=== PATIENT | male | born 1930 | race Hispanic/Latino ===

== ENCOUNTER 2017-01-15 08:10 | Outpatient (CLI) | payer MEDICARE ==
--- NOTE | 2017-01-15 09:54 | Fluoroscopy Report ---
Barium swallow: History: Dysphagia. Findings: Transit of barium through the distal esophagus is delayed due to tertiary contractions. There is small sliding hiatal hernia noted with marked gastroesophageal reflux extending to the cervical esophagus. No evidence of ulcer. No extravasation of contrast. The ingested tablet was stuck initially in the vallecula and eventually progressed into the thoracic esophagus and stomach following multiple attempts with ingested water and thin barium. There is mild stricture noted just distal to hypopharynx. Impression: Small sliding hiatal hernia with marked gastroesophageal reflux extending to the cervical esophagus. No definite evidence of ulceration. Mild stricture just distal to hypopharynx.
== END 2017-01-15 08:11 | disposition home or self-care (01) ==
LOC: FLUORO 08:10
PROVIDERS: ATTEND Internal Medicine Gastroenterology
DX: R13.14 Dysphagia, pharyngoesophageal phase (principal); K22.2 Esophageal obstruction; K44.9 Diaphragmatic hernia without obstruction or gangrene
CPT/HCPCS: 74220

== ENCOUNTER 2018-10-25 10:51 | Emergency (ER) | payer MEDICARE ==
[2018-10-25 12:22] VITALS: BP 163/53
[2018-10-25] MEDS ORDERED: NACL 0.9% 1000 ML IV ONE (12:50)
--- NOTE | 2018-10-25 13:01 | Emergency Department Report ---
ED Shortness of Breath HPI - General Chief Complaint: Medical Clearance Stated Complaint: COUGH Time Seen by Provider: 10/25/18 12:23 Source: EMS Mode of arrival: Stretcher Limitations: Physical Limitation - History of Present Illness Initial Comments: Mr. Garza is an 88 yo male with history of diabetes hypertension coronary artery disease status post CABG who presents with choking episode last night. His noticed that he choked on water. She heard gurgling. He coughed the majority of the night. He's had poor appetite over the last several weeks. He's had chills. He felt hot to touch. Patient states that he feels okay. Patient does not have any complaints. He denies any pain. Patient is bedbound. He wears diapers. at the bedside desires ordered for inpatient rehabilitation. PCP is Dr. Yousif Shaikh. Complaint: shortness of breath -: Sudden Severity: moderate Consistency: constant, now resolved Improves With: bronchodilators, upright position Context: choking/aspiration - Related Data Previous Rx's Medication Instructions Recorded Last Taken Type levoFLOXacin [Levaquin TAB] 500 mg PO QDAY 6 Days #6 tablet 10/25/18 Unknown Rx Allergies Allergy/AdvReac Type Severity Reaction Status Date / Time No Known Allergies Allergy Unverified 01/15/17 08:10 ED Review of Systems ROS: Stated complaint: COUGH Other details as noted in HPI Comment: All other systems reviewed and negative Constitutional: chills, malaise Respiratory: cough, shortness of breath ED Past Medical Hx - Past Medical History Previous Medical History?: Yes Hx Hypertension: Yes Hx Diabetes: Yes - Surgical History Past Surgical History?: Yes Hx Open Heart Surgery: Yes (Triple Bypass) - Social History Smoking Status: Former Smoker Substance Use Type: None - Medications Home Medications: Home Medications Medication Instructions Recorded Confirmed Last Taken Type levoFLOXacin [Levaquin TAB] 500 mg PO QDAY 6 Days #6 tablet 10/25/18 Unknown Rx ED Physical Exam - General Limitations: Physical Limitation General appearance: alert, in no apparent distress, other (elderly frail) - Head Head exam: Present: atraumatic, normocephalic - Eye Eye exam: Present: normal appearance - ENT ENT exam: Present: mucous membranes dry - Neck Neck exam: Present: normal inspection. Absent: tenderness, meningismus - Respiratory Respiratory exam: Present: decreased breath sounds. Absent: respiratory distress, wheezes, rales, rhonchi - Cardiovascular Cardiovascular Exam: Present: regular rate, normal rhythm. Absent: systolic murmur, diastolic murmur, rubs, gallop - GI/Abdominal GI/Abdominal exam: Present: soft, normal bowel sounds. Absent: distended, tenderness, guarding - Rectal Rectal exam: Present: deferred - Extremities Exam Extremities exam: Present: normal inspection - Back Exam Back exam: Present: normal inspection - Neurological Exam Neurological exam: Present: alert, oriented X3 - Psychiatric Psychiatric exam: Present: normal mood, flat affect - Skin Skin exam: Present: warm, dry, intact, normal color, other (warm to touch). Absent: rash ED Course Vital Signs 10/25/18 10/25/18 12:16 13:24 Temperature 100.1 F H Pulse Rate 71 Respiratory 16 Rate Blood Pressure 163/53 ED Medical Decision Making - Lab Data Result diagrams: 10/25/18 13:43 10/25/18 13:43 - Radiology Data Radiology results: report reviewed No infiltrate seen on chest x-ray - Medical Decision Making Mr. Garza presents with cough and low grade fever elevated WBC. History of choking episode. Will cover for possible bacterial pneumonia consideration of aspiration pneumonitis. Discharged home with prescription for Levaquin. First dose provided in the ED. Also provided IV hydration with history of poor by mouth intake over the last several weeks. Discharged home and should follow up with PCP Dr. Yousif Thayer. Critical care attestation.: If time is entered above; I have spent that time in minutes in the direct care of this critically ill patient, excluding procedure time. ED Disposition Clinical Impression: Community acquired pneumonia Disposition: - TO HOME OR SELFCARE Is pt being admited?: No Does the pt Need Aspirin: No Condition: Stable Instructions: Bacterial Pneumonia (ED) Prescriptions: levoFLOXacin [Levaquin TAB] 500 mg PO QDAY 6 Days #6 tablet Referrals: YOUSIF SHAIKH MD [Staff Physician] - [facility]
[2018-10-25 13:31] LABS: Bilirubin,Urine NEG (Negative); Blood,Urine MOD (Negative); Color,Urine Yellow (Yellow); Mucus,Urine FEW /HPF; Urobilinogen,Urine < 2.0 mg/dL (<2.0)
--- NOTE | 2018-10-25 13:47 | XRay Report ---
AP CHEST: HISTORY: Stroke, gurgling Previous CABG changes are identified. Normal heart size and pulmonary vascularity. There are chronic interstitial changes throughout both lungs. Trace right pleural effusion. Left pleural calcifications are identified suggesting previous pleural insult. IMPRESSION: Chronic findings as described above. No acute process identified.
[2018-10-25 14:16] LABS: Hematocrit 28.3 % (35.5-45.6); Hemoglobin 9.1 gm/dl (11.8-15.2); Mean Corpuscular HGB Conc 32 % (32-34); Mean Corpuscular Volume 81 fl (84-94); Platelet Count 108 K/mm3 (140-440); Red Blood Count 3.51 M/mm3 (3.65-5.03); Red Cell Distribution Width 17.2 % (13.2-15.2)
[2018-10-25 14:35] LABS: Alanine Aminotransferase 14 units/L (7-56); BUN/Creatinine Ratio 18; Blood Urea Nitrogen 20 mg/dL (9-20); Calcium 8.8 mg/dL (8.4-10.2); Hemolysis Index 7
[2018-10-25] MEDS ORDERED: LEVAQUIN PO ONE (15:30)
[2018-10-25 15:31] LABS: Total Cells Counted 100
[2018-10-25 15:32] LABS: Anisocytosis 1+; Basophils % (Manual) 0 % (0.0-1.8); Eosinophils % (Manual) 0 % (0.0-4.3); Platelet Estimate Consistent w Auto; Target Cells Few
[2018-10-25 15:33] LABS: Tear Drop Cells Rare
== END 2018-10-25 16:33 | disposition home or self-care (01) ==
LOC: EDBD → ED 10:51
DX: J18.8 Other pneumonia, unspecified organism (principal); I10 Essential (primary) hypertension; E11.9 Type 2 diabetes mellitus without complications; Z87.891 Personal history of nicotine dependence
CPT/HCPCS: 36415; 71045; 80053; 81001; 85007; 85025; 87040; 99284; J7030

== ENCOUNTER 2019-02-18 08:06 | Inpatient (IN) | payer MEDICARE ==
[2019-02-18] MEDS ORDERED: DUONEB *Not for PRN Use IH ONE (08:20)
--- NOTE | 2019-02-18 10:28 | XRay Report ---
PROCEDURE: XR CHEST 1V AP TECHNIQUE: Chest radiograph single view. HISTORY: IMAN COMPARISONS: None . FINDINGS: Single frontal view of the chest was acquired. There is cardiomegaly. There are bilateral p leural effusions versus pleural thickening. There is bilateral apical pleural-parenchymal scarring. T here is some increased density in the right pulmonary apex which could represent pulmonary edema or p neumonia. IMPRESSION: Possible right upper lobe infiltrate This document is electronically signed by Charli Heath MD., February 18 2019 10:26:17 AM ET
[2019-02-18 11:33] LABS: Creatine Kinase MB 2.9 ng/mL (0.0-4.0)
[2019-02-18 11:35] LABS: Alanine Aminotransferase 47 units/L (7-56); Albumin 2.7 g/dL (3.9-5); BUN/Creatinine Ratio 19; Blood Urea Nitrogen 26 mg/dL (9-20); Calcium 7.8 mg/dL (8.4-10.2); Hemolysis Index 4
[2019-02-18 11:38] LABS: Bilirubin,Direct < 0.2 mg/dL (0-0.2)
--- NOTE | 2019-02-18 11:39 | Emergency Department Report ---
ED General Adult HPI - General Chief complaint: Dyspnea/Respdistress Stated complaint: IMAN Time Seen by Provider: 02/18/19 09:27 Source: EMS Mode of arrival: Stretcher Limitations: Altered Mental Status, Physical Limitation - History of Present Illness Initial comments: This is an 88-year-old man who is homeless health care provider alerted the family of his pulse oximetry of 76%. His breathing was somewhat labored. However, he was not specifically complaining. According to the the patient had a CABG perhaps 15 years ago and has "not had any problem since. He does not have a history of COPD or CHF. He has not recently been hospitalized. He has no known history of pneumonia. He is hypertensive and diabetic. He does not use home nebulized therapy or oxygen. The family did communicate to the nursing staff desire for the patient not to undergo CPR. They state that they have considered hospice care in the past but the patient is not assigned to hospice now. They do not have a specific and of life plan well defined. Patient does not have a history of a known terminal illness. -: Gradual, week(s) - Related Data Previous Rx's Medication Instructions Recorded Last Taken Type levoFLOXacin [Levaquin TAB] 500 mg PO QDAY 6 Days #6 tablet 10/25/18 Unknown Rx Allergies Allergy/AdvReac Type Severity Reaction Status Date / Time No Known Allergies Allergy Unverified 01/15/17 08:10 ED Review of Systems ROS: Stated complaint: IMAN Other details as noted in HPI Comment: All other systems reviewed and negative Constitutional: weakness Respiratory: shortness of breath Gastrointestinal: other (anorexia) ED Past Medical Hx - Past Medical History Hx Hypertension: Yes Hx Diabetes: Yes - Surgical History Hx Open Heart Surgery: Yes (Triple Bypass) - Social History Smoking Status: Current Every Day Smoker Substance Use Type: None - Medications Home Medications: Home Medications Medication Instructions Recorded Confirmed Last Taken Type levoFLOXacin [Levaquin TAB] 500 mg PO QDAY 6 Days #6 tablet 10/25/18 Unknown Rx ED Physical Exam - General Limitations: Altered Mental Status, Physical Limitation General appearance: alert, in no apparent distress, lethargic - Head Head exam: Present: atraumatic, normocephalic - Eye Eye exam: Present: normal appearance - ENT ENT exam: Present: mucous membranes moist - Neck Neck exam: Present: normal inspection. Absent: tenderness, meningismus - Respiratory Respiratory exam: Present: rhonchi. Absent: respiratory distress - Cardiovascular Cardiovascular Exam: Present: regular rate, normal rhythm. Absent: systolic murmur, diastolic murmur, rubs, gallop - GI/Abdominal GI/Abdominal exam: Present: soft, normal bowel sounds. Absent: distended, tenderness, guarding, rebound - Rectal Rectal exam: Present: deferred - Extremities Exam Extremities exam: Present: normal inspection - Back Exam Back exam: Present: normal inspection - Neurological Exam Neurological exam: Present: alert, oriented X3, CN II-XII intact. Absent: motor sensory deficit - Psychiatric Psychiatric exam: Present: normal mood, flat affect - Skin Skin exam: Present: warm, dry, intact, normal color. Absent: rash ED Course Vital Signs 02/18/19 02/18/19 02/18/19 08:20 08:30 08:31 Temperature Pulse Rate Pulse Rate [ 83 Anterior Left Throughout] Pulse Rate [ 83 Anterior Right Throughout] Respiratory 16 Rate Respiratory 24 Rate [Anterior Left Throughout ] Respiratory 24 Rate [Anterior Right Throughout] Blood Pressure 160/74 Blood Pressure [Left] O2 Sat by Pulse 100 100 Oximetry 02/18/19 02/18/19 02/18/19 08:32 08:46 08:49 Temperature 97.9 F Pulse Rate 77 Pulse Rate [ 93 H Anterior Left Throughout] Pulse Rate [ 22 L Anterior Right Throughout] Respiratory 16 Rate Respiratory 22 Rate [Anterior Left Throughout ] Respiratory 93 H Rate [Anterior Right Throughout] Blood Pressure Blood Pressure 144/80 [Left] O2 Sat by Pulse 92 100 Oximetry 02/18/19 02/18/19 02/18/19 09:00 09:16 09:30 Temperature Pulse Rate 86 83 78 Pulse Rate [ Anterior Left Throughout] Pulse Rate [ Anterior Right Throughout] Respiratory 16 13 15 Rate Respiratory Rate [Anterior Left Throughout ] Respiratory Rate [Anterior Right Throughout] Blood Pressure 144/68 148/68 144/68 Blood Pressure [Left] O2 Sat by Pulse 95 Oximetry 02/18/19 02/18/19 02/18/19 09:46 10:00 10:16 Temperature Pulse Rate 78 72 75 Pulse Rate [ Anterior Left Throughout] Pulse Rate [ Anterior Right Throughout] Respiratory 22 14 16 Rate Respiratory Rate [Anterior Left Throughout ] Respiratory Rate [Anterior Right Throughout] Blood Pressure 144/68 144/68 158/52 Blood Pressure [Left] O2 Sat by Pulse 100 100 Oximetry 02/18/19 02/18/19 02/18/19 10:30 10:46 11:00 Temperature Pulse Rate 76 77 74 Pulse Rate [ Anterior Left Throughout] Pulse Rate [ Anterior Right Throughout] Respiratory 24 15 20 Rate Respiratory Rate [Anterior Left Throughout ] Respiratory Rate [Anterior Right Throughout] Blood Pressure 158/52 158/52 158/52 Blood Pressure [Left] O2 Sat by Pulse 99 100 98 Oximetry 02/18/19 02/18/19 11:16 11:30 Temperature Pulse Rate 71 70 Pulse Rate [ Anterior Left Throughout] Pulse Rate [ Anterior Right Throughout] Respiratory 22 17 Rate Respiratory Rate [Anterior Left Throughout ] Respiratory Rate [Anterior Right Throughout] Blood Pressure 136/52 136/52 Blood Pressure [Left] O2 Sat by Pulse 99 99 Oximetry - Reevaluation(s) Reevaluation #1: Discussed further with the family their wishes for care at this point. They aren't agreement with noninvasive positive pressure ventilation. Therefore the patient was placed on BiPAP. This progress will be monitored. His chest x-ray does look like there is extensive disease. I would certainly consider the possibility of pneumonia, CHF and chronic lung and even underlying neoplasm. 02/18/19 11:39 02/18/19 11:41 Reevaluation #2: [facility] to the nurses to have the family sign the DO NOT RESUSCITATE at their request. They do want BiPAP. They do want medical management. They do not want intubation or CPR. 02/18/19 11:53 ED Medical Decision Making - Lab Data Result diagrams: 02/18/19 10:44 02/18/19 10:44 Laboratory Results - last 24 hr 02/18/19 02/18/19 02/18/19 10:22 10:44 10:44 POC ABG pH 7.269 L POC ABG pCO2 68.7 H POC ABG pO2 218 H POC ABG HCO3 31.5 POC ABG Total CO2 34 POC ABG O2 Sat 100 POC ABG Base Excess 5 FiO2 32 Sodium Potassium Chloride Carbon Dioxide Anion Gap BUN Creatinine Estimated GFR BUN/Creatinine Ratio Glucose Lactic Acid Calcium Magnesium Total Bilirubin Direct Bilirubin Indirect Bilirubin AST ALT Alkaline Phosphatase CK-MB (CK-2) 2.9 Troponin T NT-Pro-B Natriuret Pep Total Protein Albumin Albumin/Globulin Ratio Plasma/Serum Alcohol < 0.01 02/18/19 02/18/19 02/18/19 10:44 10:44 10:44 POC ABG pH POC ABG pCO2 POC ABG pO2 POC ABG HCO3 POC ABG Total CO2 POC ABG O2 Sat POC ABG Base Excess FiO2 Sodium 140 Potassium 4.9 Chloride 100.5 Carbon Dioxide 29 Anion Gap 15 BUN 26 H Creatinine 1.4 Estimated GFR 48 BUN/Creatinine Ratio 19 Glucose 121 H Lactic Acid 1.40 Calcium 7.8 L Magnesium 2.20 Total Bilirubin 0.40 Direct Bilirubin < 0.2 Indirect Bilirubin 0.2 AST 34 ALT 47 Alkaline Phosphatase 111 CK-MB (CK-2) Troponin T 0.033 H NT-Pro-B Natriuret Pep 50173 H Total Protein 6.5 Albumin 2.7 L Albumin/Globulin Ratio 0.7 Plasma/Serum Alcohol Laboratory Results - last 24 hr 02/18/19 02/18/19 02/18/19 10:22 10:44 10:44 POC ABG pH 7.269 L POC ABG pCO2 68.7 H POC ABG pO2 218 H POC ABG HCO3 31.5 POC ABG Total CO2 34 POC ABG O2 Sat 100 POC ABG Base Excess 5 FiO2 32 Sodium Potassium Chloride Carbon Dioxide Anion Gap BUN Creatinine Estimated GFR BUN/Creatinine Ratio Glucose Lactic Acid Calcium Magnesium Total Bilirubin Direct Bilirubin Indirect Bilirubin AST ALT Alkaline Phosphatase CK-MB (CK-2) 2.9 Troponin T NT-Pro-B Natriuret Pep Total Protein Albumin Albumin/Globulin Ratio Plasma/Serum Alcohol < 0.01 02/18/19 02/18/19 02/18/19 10:44 10:44 10:44 POC ABG pH POC ABG pCO2 POC ABG pO2 POC ABG HCO3 POC ABG Total CO2 POC ABG O2 Sat POC ABG Base Excess FiO2 Sodium 140 Potassium 4.9 Chloride 100.5 Carbon Dioxide 29 Anion Gap 15 BUN 26 H Creatinine 1.4 Estimated GFR 48 BUN/Creatinine Ratio 19 Glucose 121 H Lactic Acid 1.40 Calcium 7.8 L Magnesium 2.20 Total Bilirubin 0.40 Direct Bilirubin < 0.2 Indirect Bilirubin 0.2 AST 34 ALT 47 Alkaline Phosphatase 111 CK-MB (CK-2) Troponin T 0.033 H NT-Pro-B Natriuret Pep 45666 H Total Protein 6.5 Albumin 2.7 L Albumin/Globulin Ratio 0.7 Plasma/Serum Alcohol - EKG Data -: EKG Interpreted by Az Rate: normal - EKG Data Atrial fibrillation ectopic beats axis deviation and intraventricular conduction delay LVH 11:42 - Radiology Data INDINGS: Single frontal view of the chest was acquired. There is cardiomegaly. There are bilateral pleural effusions versus pleural thickening. There is bilateral apical pleural- parenchymal scarring. There is some increased density in the right pulmonary apex which could represent pulmonary edema or pneumonia. IMPRESSION: Possible right upper lobe infiltrate This document is electronically signed by Alcon Heath MD., February 18 2019 10:26:17 AM ET Transcribed By: MARTINEZ Dictated By: ALCON HEATH MD Critical Care Time: Yes Critical care time in (mins) excluding proc time.: 60 Critical care attestation.: If time is entered above; I have spent that time in minutes in the direct care of this critically ill patient, excluding procedure time. ED Disposition Clinical Impression: Acute hypercapnic respiratory failure Pneumonia Qualifiers: Pneumonia type: due to unspecified organism Laterality: right Lung location: lower lobe of lung Qualified Code(s): J18.1 - Lobar pneumonia, unspecified organism CHF (congestive heart failure) Qualifiers: Heart failure type: unspecified Heart failure chronicity: unspecified Qualified Code(s): I50.9 - Heart failure, unspecified Atrial fibrillation Qualifiers: Atrial fibrillation type: unspecified Qualified Code(s): I48.91 - Unspecified atrial fibrillation Type 2 diabetes mellitus Qualifiers: Diabetes mellitus [facility] insulin use: without [facility] use Diabetes mellitus complication status: with other specified complication Qualified Code(s): E11.69 - Type 2 diabetes mellitus with other specified complication Disposition: DC-09 OP ADMIT IP TO THIS HOSP Is pt being admited?: Yes Does the pt Need Aspirin: Yes Condition: Stable Instructions: Diabetes Mellitus Type 2 in Adults (ED), Bacterial Pneumonia (ED) Referrals: PRIMARY CAREMD [Primary Care Provider] - 3-5 Days Time of Disposition: 11:49
[2019-02-18 11:46] LABS: INR 1.38 (0.87-1.13)
[2019-02-18] MEDS ORDERED: LEVAQUIN 500MG/100ML 500 MG/100 ML BAG IV ONE ×2 (11:46→12:27)
[2019-02-18] MEDS ORDERED: LASIX IV ONE (11:46)
[2019-02-18 11:47] LABS: Partial Thromboplastin Time 30.4 Sec. (24.2-36.6)
[2019-02-18] MEDS ORDERED: ROCEPHIN/NS 1 GM/50 ML 1 GM/50 ML BAG IV ONE ×2 (11:47→12:27)
[2019-02-18 11:49] LABS: Mean Corpuscular HGB Conc 29 % (32-34); Red Blood Count 4.25 M/mm3 (3.65-5.03); Red Cell Distribution Width 19.1 % (13.2-15.2)
[2019-02-18 11:50] LABS: Hematocrit 29.2 % (35.5-45.6); Hemoglobin 8.4 gm/dl (11.8-15.2); Mean Corpuscular Volume 69 fl (84-94); Platelet Count 80 K/mm3 (140-440)
[2019-02-18] MEDS ORDERED: BABY ASPIRIN PO ONE (11:50)
[2019-02-18] MEDS ORDERED: LASIX ONE (12:27)
[2019-02-18] MEDS ORDERED: BABY ASPIRIN ONE (12:27)
[2019-02-18 12:30] LABS: Chol/HDL Ratio 1.9 %
[2019-02-18 12:43] LABS: Basophils % (Manual) 0 % (0.0-1.8); Total Cells Counted 100
[2019-02-18 12:45] LABS: Hypochromasia 1+; Platelet Estimate Consistent w Auto; Target Cells 1+
[2019-02-18] MEDS ORDERED: ATIVAN ONE (16:27)
[2019-02-18] MEDS ORDERED: ATIVAN IV ONE (16:31)
--- NOTE | 2019-02-18 17:13 | History and Physical Report ---
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 Social History Smoking Status: Current Every Day Smoker Substance Use Type: None Family History N/a Medications Home Medications: Home Medications Medication Instructions Recorded Confirmed Last Taken Type levoFLOXacin [Levaquin TAB] 500 mg PO QDAY 6 Days #6 tablet 10/25/18 Unknown Rx Review of Systems ROS: Stated complaint: IMAN Other details as noted in HPI Comment: All other systems reviewed and negative Constitutional: weakness Respiratory: shortness of breath Gastrointestinal: other (anorexia) Medications and Allergies Allergies Allergy/AdvReac Type Severity Reaction Status Date / Time No Known Allergies Allergy Unverified 01/15/17 08:10 Home Medications Medication Instructions Recorded Confirmed Last Taken Type levoFLOXacin [Levaquin TAB] 500 mg PO QDAY 6 Days #6 tablet 10/25/18 Unknown Rx Exam - Constitutional Vitals: Temp Pulse Resp BP Pulse Ox 97.9 F 72 18 141/80 99 02/18/19 08:49 02/18/19 15:16 02/18/19 15:16 02/18/19 15:16 02/18/19 13:00 General appearance: Present: severe distress, well-nourished - EENT Eyes: Present: PERRL ENT: hearing intact, clear oral mucosa - Neck Neck: Present: supple, normal ROM - Respiratory Respiratory effort: normal Respiratory: bilateral: diminished, rhonchi, wheezing - Cardiovascular Heart rate: 88 Rhythm: regular Heart Sounds: Present: S1 & S2. Absent: rub, click - Extremities Extremities: no ischemia, pulses intact, pulses symmetrical, No edema Peripheral Pulses: within normal limits - Abdominal General gastrointestinal: Present: soft, non-tender, non-distended, normal bowel sounds Male genitourinary: Present: normal - Rectal Rectal Exam: deferred - Integumentary Integumentary: Present: clear, warm, dry - Musculoskeletal Musculoskeletal: gait normal, strength equal bilaterally - Psychiatric Psychiatric: appropriate mood/affect, intact judgment & insight - Neurologic Neurologic: CNII-XII intact, moves all extremities - Allied Health Allied health notes reviewed: nursing, case management Results - Labs CBC & Chem 7: 02/18/19 10:44 02/18/19 10:44 Labs: Laboratory Last Values WBC 4.6 K/mm3 (4.5-11.0) 02/18/19 10:44 RBC 4.25 M/mm3 (3.65-5.03) 02/18/19 10:44 Hgb 8.4 gm/dl (11.8-15.2) L 02/18/19 10:44 Hct 29.2 % (35.5-45.6) L 02/18/19 10:44 MCV 69 fl (84-94) L 02/18/19 10:44 MCH 20 pg (28-32) L 02/18/19 10:44 MCHC 29 % (32-34) L 02/18/19 10:44 RDW 19.1 % (13.2-15.2) H 02/18/19 10:44 Plt Count 80 K/mm3 (140-440) L 02/18/19 10:44 Add Manual Diff Complete 02/18/19 10:44 Total Counted 100 02/18/19 10:44 Seg Neuts % (Manual) 87.0 % (40.0-70.0) H 02/18/19 10:44 1.0 % 02/18/19 10:44 8.0 % (13.4-35.0) L 02/18/19 10:44 Reactive Lymphs % (Man) 0 % 02/18/19 10:44 1.0 % (0.0-7.3) 02/18/19 10:44 3.0 % (0.0-4.3) 02/18/19 10:44 0 % (0.0-1.8) 02/18/19 10:44 0 % 02/18/19 10:44 0 % 02/18/19 10:44 0 % 02/18/19 10:44 0 % 02/18/19 10:44 Nucleated RBC % 4.0 % (0.0-0.9) H 02/18/19 10:44 Seg Neutrophils # Man 4.0 K/mm3 (1.8-7.7) 02/18/19 10:44 Band Neutrophils # 0.0 K/mm3 02/18/19 10:44 0.4 K/mm3 (1.2-5.4) L 02/18/19 10:44 Abs React Lymphs (Man) 0.0 K/mm3 02/18/19 10:44 0.0 K/mm3 (0.0-0.8) 02/18/19 10:44 0.1 K/mm3 (0.0-0.4) 02/18/19 10:44 0.0 K/mm3 (0.0-0.1) 02/18/19 10:44 0.0 K/mm3 02/18/19 10:44 0.0 K/mm3 02/18/19 10:44 0.0 K/mm3 02/18/19 10:44 Blast Cells # 0.0 K/mm3 02/18/19 10:44 WBC Morphology Not Reportable 02/18/19 10:44 Hypersegmented Neuts Not Reportable 02/18/19 10:44 Hyposegmented Neuts Not Reportable 02/18/19 10:44 Hypogranular Neuts Not Reportable 02/18/19 10:44 Not Reportable 02/18/19 10:44 Not Reportable 02/18/19 10:44 Not Reportable 02/18/19 10:44 Not Reportable 02/18/19 10:44 Not Reportable 02/18/19 10:44 Not Reportable 02/18/19 10:44 Consistent w auto 02/18/19 10:44 Not Reportable 02/18/19 10:44 Plt Clumps, EDTA Not Reportable 02/18/19 10:44 Not Reportable 02/18/19 10:44 Not Reportable 02/18/19 10:44 Not Reportable 02/18/19 10:44 Plt Morphology Comment Not Reportable 02/18/19 10:44 RBC Morphology Not Reportable 02/18/19 10:44 Dimorphic RBCs Not Reportable 02/18/19 10:44 Few 02/18/19 10:44 1+ 02/18/19 10:44 Not Reportable 02/18/19 10:44 Not Reportable 02/18/19 10:44 Not Reportable 02/18/19 10:44 Not Reportable 02/18/19 10:44 Not Reportable 02/18/19 10:44 Not Reportable 02/18/19 10:44 Not Reportable 02/18/19 10:44 1+ 02/18/19 10:44 Not Reportable 02/18/19 10:44 Not Reportable 02/18/19 10:44 Not Reportable 02/18/19 10:44 Not Reportable 02/18/19 10:44 Not Reportable 02/18/19 10:44 Not Reportable 02/18/19 10:44 Not Reportable 02/18/19 10:44 Not Reportable 02/18/19 10:44 Few 02/18/19 10:44 Acanthocytes (Spur) Not Reportable 02/18/19 10:44 Rouleaux Not Reportable 02/18/19 10:44 Not Reportable 02/18/19 10:44 Not Reportable 02/18/19 10:44 Not Reportable 02/18/19 10:44 Not Reportable 02/18/19 10:44 Hem Pathologist Commnt No 02/18/19 10:44 PT 16.6 Sec. (12.2-14.9) H 02/18/19 10:44 INR 1.38 (0.87-1.13) H 02/18/19 10:44 APTT 30.4 Sec. (24.2-36.6) 02/18/19 10:44 495.84 ng/mlDDU (0-234) H 02/18/19 10:44 POC ABG pH 7.269 (7.35-7.45) L 02/18/19 10:22 POC ABG pCO2 68.7 (35-45) H 02/18/19 10:22 POC ABG pO2 218 (80-105) H 02/18/19 10:22 POC ABG HCO3 31.5 (22-26 mml/L) 02/18/19 10:22 POC ABG Total CO2 34 (23-27mmol/L) 02/18/19 10:22 POC ABG O2 Sat 100 02/18/19 10:22 POC ABG Base Excess 5 ((-2) - (+3)mmol/L) 02/18/19 10:22 32 % 02/18/19 10:22 Sodium 140 mmol/L (137-145) 02/18/19 10:44 Potassium 4.9 mmol/L (3.6-5.0) 02/18/19 10:44 Chloride 100.5 mmol/L (98-107) 02/18/19 10:44 Carbon Dioxide 29 mmol/L (22-30) 02/18/19 10:44 15 mmol/L 02/18/19 10:44 BUN 26 mg/dL (9-20) H 02/18/19 10:44 1.4 mg/dL (0.8-1.5) 02/18/19 10:44 Estimated GFR 48 ml/min 02/18/19 10:44 19 % 02/18/19 10:44 Glucose 121 mg/dL (75-100) H 02/18/19 10:44 Lactic Acid 1.40 mmol/L (0.7-2.0) 02/18/19 10:44 Calcium 7.8 mg/dL (8.4-10.2) L 02/18/19 10:44 Magnesium 2.20 mg/dL (1.7-2.3) 02/18/19 10:44 0.40 mg/dL (0.1-1.2) 02/18/19 10:44 < 0.2 mg/dL (0-0.2) 02/18/19 10:44 0.2 mg/dL 02/18/19 10:44 AST 34 units/L (5-40) 02/18/19 10:44 ALT 47 units/L (7-56) 02/18/19 10:44 111 units/L (35-129) 02/18/19 10:44 37 units/L (55-170) L 02/18/19 10:44 CK-MB (CK-2) 2.9 ng/mL (0.0-4.0) 02/18/19 10:44 CK-MB (CK-2) Rel Index 7.8 (0-4) H 02/18/19 10:44 0.033 ng/mL (0.00-0.029) H 02/18/19 10:44 NT-Pro-B Natriuret Pep 04218 pg/mL (0-900) H 02/18/19 10:44 6.5 g/dL (6.3-8.2) 02/18/19 10:44 2.7 g/dL (3.9-5) L 02/18/19 10:44 0.7 % 02/18/19 10:44 Triglycerides 66 mg/dL (2-149) 02/18/19 10:44 Cholesterol 84 mg/dL (50-199) 02/18/19 10:44 31 mg/dL (50-130) L 02/18/19 10:44 44 mg/dL (40-59) 02/18/19 10:44 1.90 % 02/18/19 10:44 Plasma/Serum Alcohol < 0.01 % (0-0.07) 02/18/19 10:44 Short CBC 02/18/19 Range/Units 10:44 WBC 4.6 (4.5-11.0) K/mm3 Hgb 8.4 L (11.8-15.2) gm/dl Hct 29.2 L (35.5-45.6) % Plt Count 80 L (140-440) K/mm3 BMP 02/18/19 10:44 Sodium 140 Potassium 4.9 Chloride 100.5 Carbon Dioxide 29 BUN 26 H Creatinine 1.4 Glucose 121 H Calcium 7.8 L Cardiac Enzymes 02/18/19 02/18/19 Range/Units 10:44 10:44 Total Creatine Kinase 37 L (55-170) units/L CK-MB (CK-2) 2.9 (0.0-4.0) ng/mL Troponin T 0.033 H (0.00-0.029) ng/mL Liver Function 02/18/19 Range/Units 10:44 Total Bilirubin 0.40 (0.1-1.2) mg/dL Direct Bilirubin < 0.2 (0-0.2) mg/dL AST 34 (5-40) units/L ALT 47 (7-56) units/L Alkaline Phosphatase 111 (35-129) units/L Albumin 2.7 L (3.9-5) g/dL - Imaging and Cardiology EKG: report reviewed Chest x-ray: report reviewed Imaging and Cardiology: Chest x-ray IMPRESSION: Possible right upper lobe infiltrate Assessment and Plan Advance Directives: Yes (DNR) VTE prophylaxis?: Chemical Plan of care discussed with patient/family: Yes - Patient Problems (1) Acute hypercapnic respiratory failure Current Visit: Yes Status: Acute Plan to address problem: IV solumedrol Duonebs and IV abx (2) Pneumonia Current Visit: Yes Status: Acute Qualifiers: Pneumonia type: due to unspecified organism Laterality: right Lung location: upper lobe of lung Qualified Code(s): J18.1 - Lobar pneumonia, unspecified organism Plan to address problem: IV abx and Duonebs and Low dose steroids (3) COPD with exacerbation Current Visit: Yes Status: Acute Plan to address problem: As above Bipap Intubation if necessary (4) CAD (coronary artery disease) Current Visit: Yes Status: Acute (5) HTN (hypertension) Current Visit: Yes Status: Chronic Qualifiers: Hypertension type: essential hypertension Qualified Code(s): I10 - Essential (primary) hypertension Plan to address problem: Cont antihypertensives (6) T2DM (type 2 diabetes mellitus) Current Visit: Yes Status: Chronic Qualifiers: Diabetes mellitus retirement insulin use: without retirement use Plan to address problem: Cont coverage (7) Anemia Current Visit: Yes Status: Chronic Qualifiers: Anemia type: unspecified type Qualified Code(s): D64.9 - Anemia, un specified Plan to address problem: Anemia work up (8) DVT prophylaxis Current Visit: Yes Status: Acute Plan to address problem: On lovenox and GI prophylaxis
[2019-02-18] MEDS ORDERED: MORPHINE IV PRN (17:21)
[2019-02-18] MEDS ORDERED: REGLAN IV PRN (17:21)
[2019-02-18] MEDS ORDERED: SODIUM CHLORIDE FLUSH SYRINGE 10 ML IV PRN (17:21)
[2019-02-18] MEDS ORDERED: ZOFRAN IV PRN (17:21)
[2019-02-18] MEDS ORDERED: TYLENOL PO PRN (17:21)
[2019-02-18] MEDS ORDERED: PROVENTIL IH PRN (17:23)
[2019-02-18] MEDS: DUONEB *Not for PRN Use IH SCH (21:36)
[2019-02-18] MEDS: NACL 0.9% 1000 ML 1,000 ML IV SCH (22:40)
[2019-02-18] MEDS: LEVAQUIN 750MG/150ML 750 MG/150 ML BAG IV SCH (22:40)
[2019-02-18] MEDS: SODIUM CHLORIDE FLUSH SYRINGE 10 ML IV SCH (22:41)
[2019-02-18] MEDS: PEPCID IV SCH (22:41)
[2019-02-18] MEDS: SOLU-Medrol IV SCH (22:42)
[2019-02-19] MEDS: SOLU-Medrol IV SCH ×4 (06:47→22:06)
[2019-02-19] MEDS: DUONEB *Not for PRN Use IH SCH ×4 (08:36→22:01)
[2019-02-19 09:33] LABS: Mean Corpuscular HGB Conc 29 % (32-34); Red Blood Count 4.58 M/mm3 (3.65-5.03)
[2019-02-19 09:38] LABS: Hematocrit 31.6 % (35.5-45.6); Hemoglobin 9.1 gm/dl (11.8-15.2); Mean Corpuscular Volume 69 fl (84-94)
[2019-02-19 09:42] LABS: Platelet Count 73 K/mm3 (140-440)
[2019-02-19 09:47] LABS: Albumin 2.7 g/dL (3.9-5); Calcium 8.5 mg/dL (8.4-10.2)
[2019-02-19 09:50] LABS: % Iron Saturation 7.12 %
[2019-02-19] MEDS: LEVAQUIN 750MG/150ML 750 MG/150 ML BAG IV SCH (12:21)
[2019-02-19] MEDS: COZAAR PO SCH (12:21)
[2019-02-19] MEDS: PEPCID IV SCH ×2 (12:21→22:06)
[2019-02-19] MEDS: SODIUM CHLORIDE FLUSH SYRINGE 10 ML IV SCH (12:22)
--- NOTE | 2019-02-19 14:04 | Progress Note ---
Assessment and Plan (1) Acute hypercapnic respiratory failure Current Visit: Yes Status: Acute Plan to address problem: IV solumedrol Duonebs and IV abx High flow oxygen with ventimask (2) Pneumonia Current Visit: Yes Status: Acute Qualifiers: Pneumonia type: due to unspecified organism Laterality: right Lung location: upper lobe of lung Qualified Code(s): J18.1 - Lobar pneumonia, unspecified organism Plan to address problem: IV abx and Duonebs and Low dose steroids (3) COPD with exacerbation Current Visit: Yes Status: Acute Plan to address problem: As above Bipap Intubation if necessary (4) CAD (coronary artery disease) Current Visit: Yes Status: Acute (5) HTN (hypertension) Current Visit: Yes Status: Chronic Qualifiers: Hypertension type: essential hypertension Qualified Code(s): I10 - Essential (primary) hypertension Plan to address problem: Cont antihypertensives (6) T2DM (type 2 diabetes mellitus) Current Visit: Yes Status: Chronic Qualifiers: Diabetes mellitus nursing home insulin use: without nursing home use Plan to address problem: Cont coverage (7) Anemia Current Visit: Yes Status: Chronic Qualifiers: Anemia type: unspecified type Qualified Code(s): D64.9 - Anemia, unspecified Plan to address problem: Anemia work up (8) Adult failure to thrive Patient also be eating for past 3 days per Patient's at bedside Encourage po intake. if not successful will consider NGT feeding Dietary consult (9)hypokalemia Kayexalate (10) DVT prophylaxis Current Visit: Yes Status: Acute Plan to address problem: On lovenox and GI prophylaxis ACP:Pt is DNR Time spent: 35 mins Subjective Date of service: 02/19/19 Principal diagnosis: acute hypercapnic respiratory failure, ammonia, COPD exacerbation, T2DM Interval history: Patient is in bed on BiPAP. Family members in the room. His . No fever. Objective - Exam Narrative Exam: Constitutional: On BiPAP In no distress Head: Normocephalic atraumatic Eyes: Pupils are equal round and reactive to light Nose: No enlarged turbinates, no septal deviation. Mouth: Moist mucous membranes. Neck: Supple no thyromegaly. No bruit. No JVD Heart: Regular rate and rhythm, S1-S2 normal. No rubs murmurs or gallop Lungs: Decreased breath sounds to auscultation bilaterally. no rales or rhonchi Abdomen: Soft, nontender. Bowel sound are present. Extremities: No edema, no cyanosis, no clubbing. Neuro: Alert oriented Oriented x3. No focal sensory or motor deficit. Skin: No rashes or hyperpigmented spots Musculoskeletal system: No joint pain or swelling Hematological: No petechia or subcutanous hemorrhages. Immunological: No multiple septic spots on the skin Lymphatic: No generalized lymphadenopathy Psychiatry: Euthymic. Calm. - Constitutional Vitals: Vital Signs - 12hr 02/19/19 02/19/19 02/19/19 03:20 05:35 05:38 Temperature 97.4 F L Pulse Rate 70 67 Pulse Rate [ Anterior Bilateral Throughout] Respiratory 24 22 Rate Respiratory Rate [Anterior Bilateral Throughout] Blood Pressure 181/77 O2 Sat by Pulse 97 98 Oximetry 02/19/19 02/19/19 02/19/19 08:34 08:35 08:38 Temperature Pulse Rate 69 Pulse Rate [ 69 Anterior Bilateral Throughout] Respiratory 20 Rate Respiratory 20 Rate [Anterior Bilateral Throughout] Blood Pressure 170/75 O2 Sat by Pulse 99 99 Oximetry 02/19/19 02/19/19 02/19/19 08:41 08:42 12:46 Temperature 97.4 F L Pulse Rate 68 Pulse Rate [ 69 69 Anterior Bilateral Throughout] Respiratory 16 Rate Respiratory 20 20 Rate [Anterior Bilateral Throughout] Blood Pressure 170/75 O2 Sat by Pulse 100 Oximetry 02/19/19 02/19/19 12:55 13:02 Temperature Pulse Rate 84 Pulse Rate [ 70 Anterior Bilateral Throughout] Respiratory 20 Rate Respiratory 20 Rate [Anterior Bilateral Throughout] Blood Pressure O2 Sat by Pulse 100 Oximetry - Labs CBC & Chem 7: 02/19/19 09:00 02/19/19 08:06 Labs: Abnormal lab results 02/18/19 02/19/19 02/19/19 Range/Units 10:22 08:06 08:06 WBC (4.5-11.0) K/mm3 Hgb (11.8-15.2) gm/dl Hct (35.5-45.6) % MCV (84-94) fl MCH (28-32) pg MCHC (32-34) % RDW (13.2-15.2) % Plt Count (140-440) K/mm3 Potassium 5.8 H (3.6-5.0) mmol/L BUN 27 H (9-20) mg/dL POC Glucose (70-105) Hemoglobin A1c 6.9 H (4-6) % Iron 23 L (49-181) ug/dL Albumin 2.7 L (3.9-5) g/dL Vitamin B12 (211-911) pg/mL 02/19/19 02/19/19 02/19/19 Range/Units 08:42 09:00 09:00 WBC 3.1 L (4.5-11.0) K/mm3 Hgb 9.1 L (11.8-15.2) gm/dl Hct 31.6 L (35.5-45.6) % MCV 69 L (84-94) fl MCH 20 L (28-32) pg MCHC 29 L (32-34) % RDW 19.0 H (13.2-15.2) % Plt Count 73 L (140-440) K/mm3 Potassium (3.6-5.0) mmol/L BUN (9-20) mg/dL POC Glucose 119 H (70-105) Hemoglobin A1c (4-6) % Iron (49-181) ug/dL Albumin (3.9-5) g/dL Vitamin B12 > 2000 H (211-911) pg/mL
[2019-02-19] MEDS ORDERED: D5NS 1,000 ML IV SCH (15:00)
[2019-02-19 16:56] LABS: Bacteria,Urine 1+ /HPF (Negative); Bilirubin,Urine NEG (Negative); Blood,Urine SM (Negative); Color,Urine Yellow (Yellow); Mucus,Urine FEW /HPF; Urobilinogen,Urine < 2.0 mg/dL (<2.0)
--- NOTE | 2019-02-19 17:08 | Consultation ---
History of Present Illness Consult date: 02/19/19 Requesting physician: LLOYD DESAI Reason for consult: other (Acute Hypoxemic Respiratory Failure) History of present illness: PULMONARY/CCM CONSULT NOTE (Full dictation # [id number]) Please see dictated notes for full details Medications and Allergies Allergies Allergy/AdvReac Type Severity Reaction Status Date / Time No Known Allergies Allergy Unverified 01/15/17 08:10 Home Medications Medication Instructions Recorded Confirmed Last Taken Type levoFLOXacin [Levaquin TAB] 500 mg PO QDAY 6 Days #6 tablet 10/25/18 02/19/19 02/19/19 10:10 Rx Active Meds: Active Medications Acetaminophen (Tylenol) 650 mg PO Q4H PRN PRN Reason: Pain MILD(1-3)/Fever >100.5/MARTINO Albuterol (Proventil) 2.5 mg IH Q4HRT PRN PRN Reason: Shortness Of Breath Albuterol/Ipratropium (Duoneb *Not For Prn Use*) 1 ampul IH QIDRT [facility] Last Admin: 02/19/19 16:49 Dose: 1 ampul Documented by: Enoxaparin Sodium (Lovenox) 30 mg SUB-Q QDAY@2200 PRASHANT Famotidine (Pepcid) 20 mg IV BID [facility] Last Admin: 02/19/19 12:21 Dose: 20 mg Documented by: Sodium Chloride (Nacl 0.9% 1000 Ml) 1,000 mls @ 42 mls/hr IV DIRECT PRASHANT Last Admin: 02/18/19 22:40 Dose: 42 mls/hr Documented by: Levofloxacin/Dextrose (Levaquin 750mg/150ml) 750 mg in 150 mls @ 100 mls/hr IV Q24HR PRASHANT; Protocol Last Admin: 02/19/19 12:21 Dose: 100 mls/hr Documented by: Dextrose/Sodium Chloride (D5ns) 1,000 mls @ 75 mls/hr IV DIRECT PRASHANT Insulin Human Lispro (Humalog) 0 unit SUB-Q ACHS [facility]; Protocol Losartan Potassium (Cozaar) 50 mg PO QDAY [facility] Last Admin: 02/19/19 12:21 Dose: 50 mg Documented by: Methylprednisolone Sodium Succinate (Solu-Medrol) 60 mg IV Q8HR [facility] Last Admin: 02/19/19 06:47 Dose: 60 mg Documented by: Metoclopramide HCl (Reglan) 10 mg IV Q6H PRN PRN Reason: Nausea And Vomiting Morphine Sulfate (Morphine) 2 mg IV Q4H PRN PRN Reason: Pain, Moderate (4-6) Ondansetron HCl (Zofran) 4 mg IV Q8H PRN PRN Reason: Nausea And Vomiting Sodium Chloride (Sodium Chloride Flush Syringe 10 Ml) 10 ml IV BID PRASHANT Last Admin: 02/19/19 12:22 Dose: 10 ml Documented by: Sodium Chloride (Sodium Chloride Flush Syringe 10 Ml) 10 ml IV PRN PRN PRN Reason: LINE FLUSH Physical Examination Vital signs: Vital Signs Pulse Resp 83 24 02/18/19 08:20 02/18/19 08:20 Results - Laboratory Findings CBC and BMP: 02/19/19 09:00 02/19/19 08:06 ABG POC ABG pH 7.269 (7.35-7.45) L 02/18/19 10:22 POC ABG pCO2 68.7 (35-45) H 02/18/19 10:22 POC ABG pO2 218 (80-105) H 02/18/19 10:22 POC ABG HCO3 31.5 (22-26 mml/L) 02/18/19 10:22 POC ABG Total CO2 34 (23-27mmol/L) 02/18/19 10:22 POC ABG O2 Sat 100 02/18/19 10:22 PT/INR, D-dimer PT 16.6 Sec. (12.2-14.9) H 02/18/19 10:44 INR 1.38 (0.87-1.13) H 02/18/19 10:44 495.84 ng/mlDDU (0-234) H 02/18/19 10:44 Abnormal lab findings: Abnormal Labs 02/18/19 02/18/19 02/18/19 10:22 10:22 10:44 WBC Hgb Hct MCV MCH MCHC RDW Plt Count Seg Neuts % (Manual) Lymphocytes % (Manual) Nucleated RBC % Lymphocytes # (Manual) PT INR D-Dimer POC ABG pH 7.269 L POC ABG pCO2 68.7 H POC ABG pO2 218 H Potassium BUN Glucose POC Glucose Hemoglobin A1c 6.9 H Calcium Iron Total Creatine Kinase 37 L CK-MB (CK-2) Rel Index 7.8 H Troponin T NT-Pro-B Natriuret Pep Albumin LDL Cholesterol Direct Vitamin B12 02/18/19 02/18/19 02/18/19 10:44 10:44 10:44 WBC Hgb 8.4 L Hct 29.2 L MCV 69 L MCH 20 L MCHC 29 L RDW 19.1 H Plt Count 80 L Seg Neuts % (Manual) 87.0 H Lymphocytes % (Manual) 8.0 L Nucleated RBC % 4.0 H Lymphocytes # (Manual) 0.4 L PT 16.6 H INR 1.38 H D-Dimer 495.84 H POC ABG pH POC ABG pCO2 POC ABG pO2 Potassium BUN 26 H Glucose 121 H POC Glucose Hemoglobin A1c Calcium 7.8 L Iron Total Creatine Kinase CK-MB (CK-2) Rel Index Troponin T NT-Pro-B Natriuret Pep 59103 H Albumin 2.7 L LDL Cholesterol Direct Vitamin B12 02/18/19 02/19/19 02/19/19 10:44 08:06 08:06 WBC Hgb Hct MCV MCH MCHC RDW Plt Count Seg Neuts % (Manual) Lymphocytes % (Manual) Nucleated RBC % Lymphocytes # (Manual) PT INR D-Dimer POC ABG pH POC ABG pCO2 POC ABG pO2 Potassium 5.8 H BUN 27 H Glucose POC Glucose Hemoglobin A1c Calcium Iron 23 L Total Creatine Kinase CK-MB (CK-2) Rel Index Troponin T 0.033 H NT-Pro-B Natriuret Pep Albumin 2.7 L LDL Cholesterol Direct 31 L Vitamin B12 02/19/19 02/19/19 02/19/19 08:42 09:00 09:00 WBC 3.1 L Hgb 9.1 L Hct 31.6 L MCV 69 L MCH 20 L MCHC 29 L RDW 19.0 H Plt Count 73 L Seg Neuts % (Manual) Lymphocytes % (Manual) Nucleated RBC % Lymphocytes # (Manual) PT INR D-Dimer POC ABG pH POC ABG pCO2 POC ABG pO2 Potassium BUN Glucose POC Glucose 119 H Hemoglobin A1c Calcium Iron Total Creatine Kinase CK-MB (CK-2) Rel Index Troponin T NT-Pro-B Natriuret Pep Albumin LDL Cholesterol Direct Vitamin B12 > 2000 H
[2019-02-19] MEDS: HumaLOG SUB-Q SCH ×2 (17:29→17:32)
[2019-02-19 18:36] LABS: Anisocytosis 1+; Basophils % (Manual) 0 % (0.0-1.8); Eosinophils % (Manual) 0 % (0.0-4.3); Platelet Estimate Consistent w Auto; Total Cells Counted 100
[2019-02-19] MEDS ORDERED: LOVENOX SUB-Q SCH ×2 (22:00)
[2019-02-19] MEDS: BROVANA NEBU IH SCH (22:01)
[2019-02-19] MEDS: NACL 0.9% 1000 ML 1,000 ML IV SCH (22:05)
[2019-02-20] MEDS: SOLU-Medrol IV SCH ×3 (06:25→22:15)
[2019-02-20 08:11] LABS: Albumin 2.6 g/dL (3.9-5); Calcium 8.2 mg/dL (8.4-10.2)
[2019-02-20] MEDS: DUONEB *Not for PRN Use IH SCH ×4 (08:19→20:52)
[2019-02-20] MEDS: BROVANA NEBU IH SCH ×3 (08:19→20:52)
--- NOTE | 2019-02-20 08:40 | Progress Note ---
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 (1) Acute hypercapnic respiratory failure IV solumedrol Duonebs and IV abx High flow oxygen with ventimask (2) Pneumonia IV abx and Duonebs and Low dose steroids blood cx - no growth so far (3) COPD with exacerbation As above high flow oxygen Intubation if necessary (4) CAD (coronary artery disease) No chest pain trend CE ASA. Hold BB b/c COPD and respiratory failure statin and acei (5) HTN (hypertension) Current Visit: Yes Status: Chronic Qualifiers: Hypertension type: essential hypertension Qualified Code(s): I10 - Essential (primary) hypertension Plan to address problem: Cont antihypertensives (6) T2DM (type 2 diabetes mellitus): Cont coverage with SSI A1c 6.9 (7) Anemia Anemia work up (8) Adult failure to thrive Patient also be eating for past 3 days per Patient's at bedside Encourage po intake. if not successful will consider NGT feeding Dietary consult (9)hypokalemia Kayexalate trend (10) DVT prophylaxis Current Visit: Yes Status: Acute Plan to address problem: On lovenox and GI prophylaxis ACP:Pt is DNR Time spent: 35 mins Subjective Date of service: 02/20/19 Principal diagnosis: acute hypercapnic respiratory failure, ammonia, COPD exacerbation, T2DM Interval history: Patient is in bed on high flow oxygen via ventimask. His . No fever. Objective - Exam Narrative Exam: Constitutional: On BiPAP. In no distress Head: Normocephalic atraumatic Eyes: Pupils are equal round and reactive to light Nose: No enlarged turbinates, no septal deviation. Mouth: Moist mucous membranes. Neck: Supple no thyromegaly. No bruit. No JVD Heart: Regular rate and rhythm, S1-S2 normal. No rubs murmurs or gallop Lungs: Decreased breath sounds to auscultation bilaterally. no rales or rhonchi Abdomen: Soft, nontender. Bowel sound are present. Extremities: No edema, no cyanosis, no clubbing. Neuro: Alert oriented Oriented x3. No focal sensory or motor deficit. Skin: No rashes or hyperpigmented spots Musculoskeletal system: No joint pain or swelling Hematological: No petechia or subcutanous hemorrhages. Immunological: No multiple septic spots on the skin Lymphatic: No generalized lymphadenopathy Psychiatry: Euthymic. Calm. - Constitutional Vitals: Vital Signs - 12hr 02/19/19 02/19/19 02/19/19 21:12 21:15 22:03 Temperature 97.5 F L Pulse Rate 68 Pulse Rate [ Anterior Bilateral Throughout] Pulse Rate [ From Monitor] Respiratory 20 Rate Respiratory Rate [Anterior Bilateral Throughout] Blood Pressure 128/44 Blood Pressure [Left] O2 Sat by Pulse 93 100 Oximetry 02/19/19 02/19/19 02/19/19 22:04 23:30 23:42 Temperature 97.6 F Pulse Rate 67 Pulse Rate [ 68 Anterior Bilateral Throughout] Pulse Rate [ From Monitor] Respiratory 20 Rate Respiratory 24 Rate [Anterior Bilateral Throughout] Blood Pressure 141/50 Blood Pressure [Left] O2 Sat by Pulse 97 Oximetry 02/20/19 02/20/19 02/20/19 00:00 03:32 05:28 Temperature Pulse Rate 71 Pulse Rate [ Anterior Bilateral Throughout] Pulse Rate [ 89 From Monitor] Respiratory 24 Rate Respiratory Rate [Anterior Bilateral Throughout] Blood Pressure Blood Pressure [Left] O2 Sat by Pulse 100 99 Oximetry 02/20/19 05:29 Temperature 97.5 F L Pulse Rate 75 Pulse Rate [ Anterior Bilateral Throughout] Pulse Rate [ From Monitor] Respiratory 20 Rate Respiratory Rate [Anterior Bilateral Throughout] Blood Pressure Blood Pressure 131/60 [Left] O2 Sat by Pulse 99 Oximetry - Labs CBC & Chem 7: 02/19/19 09:00 02/20/19 07:32 Labs: Abnormal lab results 02/19/19 02/19/19 02/19/19 Range/Units 08:06 08:06 08:42 WBC (4.5-11.0) K/mm3 Hgb (11.8-15.2) gm/dl Hct (35.5-45.6) % MCV (84-94) fl MCH (28-32) pg MCHC (32-34) % RDW (13.2-15.2) % Plt Count (140-440) K/mm3 Seg Neuts % (Manual) (40.0-70.0) % Lymphocytes % (Manual) (13.4-35.0) % Lymphocytes # (Manual) (1.2-5.4) K/mm3 POC ABG pCO2 (35-45) Potassium 5.8 H (3.6-5.0) mmol/L BUN 27 H (9-20) mg/dL Creatinine (0.8-1.5) mg/dL Glucose (75-100) mg/dL POC Glucose 119 H (70-105) Calcium (8.4-10.2) mg/dL Iron 23 L (49-181) ug/dL C-Reactive Protein (0.00-1.30) mg/dL Albumin 2.7 L (3.9-5) g/dL Vitamin B12 (211-911) pg/mL 02/19/19 02/19/19 02/19/19 Range/Units 09:00 09:00 16:24 WBC 3.1 L (4.5-11.0) K/mm3 Hgb 9.1 L (11.8-15.2) gm/dl Hct 31.6 L (35.5-45.6) % MCV 69 L (84-94) fl MCH 20 L (28-32) pg MCHC 29 L (32-34) % RDW 19.0 H (13.2-15.2) % Plt Count 73 L (140-440) K/mm3 Seg Neuts % (Manual) 93.0 H (40.0-70.0) % Lymphocytes % (Manual) 5.0 L (13.4-35.0) % Lymphocytes # (Manual) 0.2 L (1.2-5.4) K/mm3 POC ABG pCO2 (35-45) Potassium (3.6-5.0) mmol/L BUN (9-20) mg/dL Creatinine (0.8-1.5) mg/dL Glucose (75-100) mg/dL POC Glucose 177 H (70-105) Calcium (8.4-10.2) mg/dL Iron (49-181) ug/dL C-Reactive Protein (0.00-1.30) mg/dL Albumin (3.9-5) g/dL Vitamin B12 > 2000 H (211-911) pg/mL 02/19/19 02/19/19 02/19/19 Range/Units 17:08 19:24 21:59 WBC (4.5-11.0) K/mm3 Hgb (11.8-15.2) gm/dl Hct (35.5-45.6) % MCV (84-94) fl MCH (28-32) pg MCHC (32-34) % RDW (13.2-15.2) % Plt Count (140-440) K/mm3 Seg Neuts % (Manual) (40.0-70.0) % Lymphocytes % (Manual) (13.4-35.0) % Lymphocytes # (Manual) (1.2-5.4) K/mm3 POC ABG pCO2 56.8 H (35-45) Potassium (3.6-5.0) mmol/L BUN (9-20) mg/dL Creatinine (0.8-1.5) mg/dL Glucose (75-100) mg/dL POC Glucose 146 H (70-105) Calcium (8.4-10.2) mg/dL Iron (49-181) ug/dL C-Reactive Protein 4.60 H (0.00-1.30) mg/dL Albumin (3.9-5) g/dL Vitamin B12 (211-911) pg/mL 02/20/19 Range/Units 07:32 WBC (4.5-11.0) K/mm3 Hgb (11.8-15.2) gm/dl Hct (35.5-45.6) % MCV (84-94) fl MCH (28-32) pg MCHC (32-34) % RDW (13.2-15.2) % Plt Count (140-440) K/mm3 Seg Neuts % (Manual) (40.0-70.0) % Lymphocytes % (Manual) (13.4-35.0) % Lymphocytes # (Manual) (1.2-5.4) K/mm3 POC ABG pCO2 (35-45) Potassium 5.4 H (3.6-5.0) mmol/L BUN 34 H (9-20) mg/dL Creatinine 1.7 H (0.8-1.5) mg/dL Glucose 161 H (75-100) mg/dL POC Glucose (70-105) Calcium 8.2 L (8.4-10.2) mg/dL Iron (49-181) ug/dL C-Reactive Protein (0.00-1.30) mg/dL Albumin 2.6 L (3.9-5) g/dL Vitamin B12 (211-911) pg/mL
[2019-02-20] MEDS ORDERED: D5NS 1,000 ML IV SCH (09:00)
[2019-02-20] MEDS: HumaLOG SUB-Q SCH ×3 (11:17→22:15)
[2019-02-20] MEDS: COZAAR PO SCH (11:18)
[2019-02-20] MEDS: PEPCID IV SCH (11:18)
[2019-02-20] MEDS: LEVAQUIN 750MG/150ML 750 MG/150 ML BAG IV SCH (11:18)
[2019-02-20] MEDS: ASPIRIN PO SCH (11:24)
[2019-02-20] MEDS: ZESTRIL PO SCH (11:24)
[2019-02-20] MEDS ORDERED: PANCREAZE DR 10,500 UNIT FEEDTUBE PRN (11:50)
[2019-02-20] MEDS ORDERED: SODIUM BICARBONATE FEEDTUBE PRN (11:50)
[2019-02-20] MEDS ORDERED: SIMPLE SYRUP FEEDTUBE PRN ×2 (11:50)
--- NOTE | 2019-02-20 13:36 | Progress Note ---
Assessment and Plan Patient awake. Resting on 2 litres O2. O2 saturation 94%. Patient shaking and unable to give any history. - Patient Problems (1) Acute hypercapnic respiratory failure Current Visit: Yes Status: Acute Plan to address problem: O2 2 litres via nasal canula. Albuterol/atrovent aerosol treatments q 6 hours. Continue I/V solumedrol. Continue Levaquin. Continue S/C Lovenox. Continue famotidine. (2) COPD with exacerbation Current Visit: Yes Status: Acute Plan to address problem: O2 2 litres via nasal canula. Albuterol/atrovent aerosol treatments q 6 hours. Continue I/V solumedrol. Continue Levaquin. Continue S/C Lovenox. Continue famotidin (3) Atrial fibrillation Current Visit: Yes Status: Acute Qualifiers: Atrial fibrillation type: unspecified Qualified Code(s): I48.91 - Unspecified atrial fibrillation Plan to address problem: Management as per cardiology. (4) CAD (coronary artery disease) Current Visit: Yes Status: Acute Plan to address problem: Management as per cardiology. (5) CHF (congestive heart failure) Current Visit: Yes Status: Acute Qualifiers: Heart failure type: unspecified Heart failure chronicity: unspecified Qualified Code(s): I50.9 - Heart failure, unspecified Plan to address problem: Management as per cardiology. (6) Pneumonia Current Visit: Yes Status: Acute Qualifiers: Pneumonia type: due to unspecified organism Laterality: right Lung location: upper lobe of lung Qualified Code(s): J18.1 - Lobar pneumonia, unspecified organism Plan to address problem: Possible right lower lobe infiltrate. Patient is on Levaquin. (7) Type 2 diabetes mellitus Current Visit: Yes Status: Acute Qualifiers: Diabetes mellitus intermediate insulin use: without skirt trimmer use Diabetes mellitus complication status: with other specified complication Qualified Code(s): E11.69 - Type 2 diabetes mellitus with other specified complication Plan to address problem: Management as per primary care. (8) HTN (hypertension) Current Visit: Yes Status: Chronic Qualifiers: Hypertension type: essential hypertension Qualified Code(s): I10 - Essential (primary) hypertension Plan to address problem: Management as per primary care. Subjective Date of service: 02/20/19 Principal diagnosis: acute hypercapnic respiratory failure, ammonia, COPD exacerbation, T2DM Interval history: Patient awake. Resting on 2 litres O2. O2 saturation 94%. Patient shaking and unable to give any history. Objective Vital Signs - 12hr 02/20/19 02/20/19 02/20/19 03:32 05:28 05:29 Temperature 97.5 F L Pulse Rate 71 75 Pulse Rate [ Anterior Bilateral Throughout] Respiratory 20 Rate Respiratory Rate [Anterior Bilateral Throughout] Blood Pressure Blood Pressure 131/60 [Left] O2 Sat by Pulse 100 99 99 Oximetry 02/20/19 02/20/19 02/20/19 09:53 10:00 10:13 Temperature 97.3 F L Pulse Rate 75 Pulse Rate [ 71 Anterior Bilateral Throughout] Respiratory 18 Rate Respiratory 16 Rate [Anterior Bilateral Throughout] Blood Pressure 156/62 Blood Pressure [Left] O2 Sat by Pulse 96 96 95 Oximetry 02/20/19 10:14 Temperature Pulse Rate Pulse Rate [ 85 Anterior Bilateral Throughout] Respiratory Rate Respiratory 16 Rate [Anterior Bilateral Throughout] Blood Pressure Blood Pressure [Left] O2 Sat by Pulse Oximetry Constitutional: no acute distress, alert, other (Having tremors.) Eyes: non-icteric ENT: oropharynx moist Neck: supple, no lymphadenopathy Ascultation: Bilateral: diminished breath sounds, other (Prolonged expiratory phase.) Cardiovascular: regular rate and rhythm Gastrointestinal: normoactive bowel sounds, soft, non-tender Integumentary: normal Extremities: no cyanosis, no edema Neurologic: non-focal exam, pupils equal and round Psychiatric: other (Patient unable to talk.) CBC and BMP: 02/19/19 09:00 02/20/19 07:32 ABG, PT/INR, D-dimer: ABG POC ABG pH 7.369 (7.35-7.45) 02/19/19 17:08 POC ABG pCO2 56.8 (35-45) H 02/19/19 17:08 POC ABG pO2 98 (80-105) 02/19/19 17:08 POC ABG HCO3 32.8 (22-26 mml/L) 02/19/19 17:08 POC ABG Total CO2 34 (23-27mmol/L) 02/19/19 17:08 POC ABG O2 Sat 97 02/19/19 17:08 PT/INR, D-dimer PT 16.6 Sec. (12.2-14.9) H 02/18/19 10:44 INR 1.38 (0.87-1.13) H 02/18/19 10:44 495.84 ng/mlDDU (0-234) H 02/18/19 10:44 Abnormal lab findings: Abnormal Labs 02/18/19 02/18/19 02/18/19 10:22 10:22 10:44 WBC Hgb Hct MCV MCH MCHC RDW Plt Count Seg Neuts % (Manual) Lymphocytes % (Manual) Nucleated RBC % Lymphocytes # (Manual) PT INR D-Dimer POC ABG pH 7.269 L POC ABG pCO2 68.7 H POC ABG pO2 218 H Potassium BUN Creatinine Glucose POC Glucose Hemoglobin A1c 6.9 H Calcium Iron Total Creatine Kinase 37 L CK-MB (CK-2) Rel Index 7.8 H Troponin T C-Reactive Protein NT-Pro-B Natriuret Pep Albumin LDL Cholesterol Direct Vitamin B12 02/18/19 02/18/19 02/18/19 10:44 10:44 10:44 WBC Hgb 8.4 L Hct 29.2 L MCV 69 L MCH 20 L MCHC 29 L RDW 19.1 H Plt Count 80 L Seg Neuts % (Manual) 87.0 H Lymphocytes % (Manual) 8.0 L Nucleated RBC % 4.0 H Lymphocytes # (Manual) 0.4 L PT 16.6 H INR 1.38 H D-Dimer 495.84 H POC ABG pH POC ABG pCO2 POC ABG pO2 Potassium BUN 26 H Creatinine Glucose 121 H POC Glucose Hemoglobin A1c Calcium 7.8 L Iron Total Creatine Kinase CK-MB (CK-2) Rel Index Troponin T C-Reactive Protein NT-Pro-B Natriuret Pep 90385 H Albumin 2.7 L LDL Cholesterol Direct Vitamin B12 02/18/19 02/19/19 02/19/19 10:44 08:06 08:06 WBC Hgb Hct MCV MCH MCHC RDW Plt Count Seg Neuts % (Manual) Lymphocytes % (Manual) Nucleated RBC % Lymphocytes # (Manual) PT INR D-Dimer POC ABG pH POC ABG pCO2 POC ABG pO2 Potassium 5.8 H BUN 27 H Creatinine Glucose POC Glucose Hemoglobin A1c Calcium Iron 23 L Total Creatine Kinase CK-MB (CK-2) Rel Index Troponin T 0.033 H C-Reactive Protein NT-Pro-B Natriuret Pep Albumin 2.7 L LDL Cholesterol Direct 31 L Vitamin B12 02/19/19 02/19/19 02/19/19 08:42 09:00 09:00 WBC 3.1 L Hgb 9.1 L Hct 31.6 L MCV 69 L MCH 20 L MCHC 29 L RDW 19.0 H Plt Count 73 L Seg Neuts % (Manual) 93.0 H Lymphocytes % (Manual) 5.0 L Nucleated RBC % Lymphocytes # (Manual) 0.2 L PT INR D-Dimer POC ABG pH POC ABG pCO2 POC ABG pO2 Potassium BUN Creatinine Glucose POC Glucose 119 H Hemoglobin A1c Calcium Iron Total Creatine Kinase CK-MB (CK-2) Rel Index Troponin T C-Reactive Protein NT-Pro-B Natriuret Pep Albumin LDL Cholesterol Direct Vitamin B12 > 2000 H 02/19/19 02/19/19 02/19/19 16:24 17:08 19:24 WBC Hgb Hct MCV MCH MCHC RDW Plt Count Seg Neuts % (Manual) Lymphocytes % (Manual) Nucleated RBC % Lymphocytes # (Manual) PT INR D-Dimer POC ABG pH POC ABG pCO2 56.8 H POC ABG pO2 Potassium BUN Creatinine Glucose POC Glucose 177 H Hemoglobin A1c Calcium Iron Total Creatine Kinase CK-MB (CK-2) Rel Index Troponin T C-Reactive Protein 4.60 H NT-Pro-B Natriuret Pep Albumin LDL Cholesterol Direct Vitamin B12 02/19/19 02/20/19 21:59 07:32 WBC Hgb Hct MCV MCH MCHC RDW Plt Count Seg Neuts % (Manual) Lymphocytes % (Manual) Nucleated RBC % Lymphocytes # (Manual) PT INR D-Dimer POC ABG pH POC ABG pCO2 POC ABG pO2 Potassium 5.4 H BUN 34 H Creatinine 1.7 H Glucose 161 H POC Glucose 146 H Hemoglobin A1c Calcium 8.2 L Iron Total Creatine Kinase CK-MB (CK-2) Rel Index Troponin T C-Reactive Protein NT-Pro-B Natriuret Pep Albumin 2.6 L LDL Cholesterol Direct Vitamin B12 Chest x-ray: report reviewed (Reported possible right upper lobe infiltrate.), image reviewed
[2019-02-20] MEDS: SODIUM CHLORIDE FLUSH SYRINGE 10 ML IV SCH ×2 (14:49→22:16)
--- NOTE | 2019-02-20 16:53 | Consultation ---
PULMONARY CONSULT NOTE CONSULTING PHYSICIAN: Dr. Dumont. REASON FOR CONSULTATION: Acute hypoxemic respiratory failure. CHIEF COMPLAINT AND HISTORY OF PRESENT ILLNESS: As follows: The patient is an 88-year-old male who reportedly is homeless. A healthcare provider alerted the family of his pulse oximetry of about 76% at that time. He was noticed also to have with labored breathing. He has got an element of dementia and unable to give much of a history. He was brought into the Emergency Room. His had given the ER physician a history of coronary artery bypass grafting about 15 years ago. He apparently has not been following up with physicians. He has not recently been hospitalized. He is not on any home oxygen. He had no known history of pneumonia. He does have a history of diabetes and he was not on any home oxygen or nebulizer treatments. He was evaluated in the Emergency Room. The patient I should mention also has a 30-plus pack year tobacco smoking history, continues to smoke. While in the ER, he was found to be in atrial fibrillation. X-ray was abnormal with possible right lung infiltrates. His arterial blood gas also showed obvious hypercapnic respiratory failure, hence the admission. We are asked to assist with management. When I stopped by to see him, he was resting in bed. He had been on bilevel positive airway pressure ventilation therapy; airway was now on a Ventimask. He told me he was feeling better. I do not have any history of vomiting or overt aspiration, although I cannot rule that out. He denies any new leg pain or swelling as best as I can decipher. This really is as much of the history of presentation as I have. PAST MEDICAL HISTORY: History of hypertension, history of diabetes, history of coronary artery disease, status post CABG. PAST SURGICAL HISTORY: He has had coronary artery bypass grafting about 15 years ago. MEDICATIONS: He was on at the time I stopped by to see him were reviewed. Pertinent medications included the following: Tylenol 650 mg p.o. q. 4 hours p.r.n. mild pain or fevers, p.r.n. albuterol 2.5 mg nebulized q. 4 hours for shortness of breath, DuoNeb treatments scheduled q.i.d., dextrose normal saline was going at 75 mL per hour earlier. Lovenox 40 mg subcutaneous daily, Pepcid 20 mg IV b.i.d., insulin via sliding scale, Levaquin 750 mg IV daily, Cozaar 50 mg p.o. daily, Solu-Medrol 60 mg IV q. 8 hours, p.r.n. Reglan, morphine sulfate 2 mg IV q. 4 hours p.r.n. moderate pain, Zofran 4 mg IV q. 8 hours p.r.n. nausea and vomiting. ALLERGIES: No known drug allergies. DIET: Thin gentleman, bordering on being cachectic, acute weight loss or gain history is unknown. FAMILY AND SOCIAL HISTORY: It was described as being homeless, but that is really unclear. I also have a history of he has been . It seems like he does live in the community. He is a current everyday smoker and has about a 30-plus pack year tobacco smoking history. No alcohol or illicit drug use or abuse was reported. Family history otherwise unknown. REVIEW OF SYSTEMS: Unobtainable secondary to the patient's dementia essentially. Since he has been here, no gross hematochezia or melena, no gross hematuria, no hematemesis, no hemoptysis, no bloody tracheal secretions, no witnessed seizures. The patient denies heat or cold intolerance as best as I can tell. Review of systems is otherwise unobtainable or as in the body of the history above. PHYSICAL EXAMINATION: VITAL SIGNS: At presentation, first vital signs; afebrile, temperature 97.9 degrees Fahrenheit, pulse was 93, respiratory rate 22, blood pressure was 160/74, oxygen sats were 100%, inspired oxygen concentration at that time was not recorded. When I stopped by to see him, O2 sats were 98% that was on 30% Ventimask. GENERAL: Elderly looking male, normocephalic, atraumatic, talking to me in slightly interrupted sentences with increased respiratory effort at rest. HEAD, EYES, EARS, NOSE AND THROAT: He is anicteric. No conjunctival erythema. Oropharynx is moist. He is a Mallampati #2 oropharynx. No gross jugular venous distention, no thyromegaly. Grossly, no palpable lymph nodes in the supraclavicular or submandibular lymph node chains. No submandibular tenderness. LUNGS: Auscultation of both lung shultz revealed diminished bilateral breath sounds, prolonged expiratory phase with expiratory wheezing. HEART: Heart sounds 1 and 2 are heard, regular rate and rhythm at the time of my evaluation with occasional extrasystoles. He has a tight systolic murmur. ABDOMEN: Soft, flat. Bowel sounds are positive, nontender. No palpable hepatosplenomegaly. EXTREMITIES: Without overt digital clubbing or cyanosis. Trace pedal edema. Pedal pulses are palpable and strong bilaterally. NEUROLOGIC: Pupils are equal, round, about 3 mm, reactive to light. Extraocular muscle movements are intact. He had spontaneous movements to all 4 extremities. The skin was of poor turgor; however, no cellulitis or rash. His mood was normal. His affect was appropriate. He did have an element of dementia. LABORATORY DATA: From my review are as follows: Admission white cell count 4600, hemoglobin 8.4, hematocrit 29.2, platelet count was 80, no band forms on the differential. INR 1.38. D-dimer was elevated at 495. Arterial blood gas showed a pH of 7.27, pCO2 of 69, pO2 of 218 that was on 3 liters nasal cannula. Serum sodium was 140, potassium 4.9, chloride 101, bicarbonate 29, BUN 26, creatinine 1.4, glucose 121. Troponin slightly elevated at 0.033. BNP elevated at 29,554. LDL cholesterol was low at 31. Urinalysis was unremarkable, negative for nitrites and leukocyte esterase. Serum alcohol level was non-detectable. Two sets of blood cultures, no growth to date. Chest x-ray has been reviewed. Main finding is right pulmonary infiltrates, but also some suggestion of pleural thickening. He may have right upper lobe infiltrate. He also has some patchy infiltrates in the left lung shultz. I cannot even rule out some nodular lesions. Median sternotomy wires are in place, borderline cardiomegaly, blunting of both costophrenic angles, possibly bilateral pleural effusions. ASSESSMENT: 1. Acute hypoxemic respiratory failure. 2. Likely chronic obstructive pulmonary disease with an acute exacerbation. 3. Coronary artery disease. 4. Likely cardiomyopathy. 5. Tobacco use disorder. 6. History of hypertension. 7. Diabetes. 8. Anemia that is microcytic. 9. Thrombocytopenia. 10. Possible alcohol abuse. 11. Elevated D-dimer. 12. Elevated serum troponin. 13. Elevated BNP level. PLAN: The question usually if this is heart or if this is lungs. It is unclear if he has been aspirating food chronically. I am not too impressed from an infectious disease standpoint, possible pleural thickening is bothersome. I do feel that in spite of an acute COPD exacerbation workup, we also need to rule out venous thromboembolic disorder. A 2D echocardiogram will also be ordered. If that is not being ordered to evaluate right and left-sided pressures, I will get a CT angiogram, both to evaluate for pulmonary emboli, but also to make sure that we are not dealing with venous thromboembolic phenomena as a cause of his decompensation. He is appropriately on GI and DVT prophylaxis. We will continue empiric Levaquin monotherapy for now. I will get a CRP level as well as trend lactic acid levels as necessary to aid clinical decision making. We do need to watch out for possible alcoholic liver disease in this gentleman with the thrombocytopenia. I will get a serum magnesium level also, actually that has been gotten and is within normal limits. Cardiology evaluation will be in order. Flu and pneumonia vaccination will be addressed per protocol. Thank you very much for the consult, Dr. Dumont. We will follow along. We will make further recommendations as picture progresses/becomes clearer. JOB# [id number] ALEIDA/YAS
[2019-02-20] MEDS ORDERED: LOVENOX SUB-Q SCH (22:00)
[2019-02-21] MEDS: SOLU-Medrol IV SCH ×2 (06:09→13:52)
[2019-02-21] MEDS: HumaLOG SUB-Q SCH ×2 (07:43→11:43)
[2019-02-21] MEDS: DUONEB *Not for PRN Use IH SCH ×2 (08:53→13:52)
[2019-02-21] MEDS: BROVANA NEBU IH SCH (08:53)
[2019-02-21] MEDS: ASPIRIN PO SCH (09:47)
[2019-02-21] MEDS: COZAAR PO SCH (09:47)
[2019-02-21] MEDS: ZESTRIL PO SCH (09:57)
[2019-02-21] MEDS ORDERED: PEPCID IV SCH (10:00)
--- NOTE | 2019-02-21 11:09 | Progress Note ---
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 Hold BB b/c COPD and respiratory failure statin and acei -- HTN (hypertension) Cont antihypertensives -- T2DM (type 2 diabetes mellitus): Cont coverage with SSI A1c 6.9 -- Anemia Anemia work up -- Adult failure to thrive Patient also be eating for past 3 days per Patient's at bedside Encourage po intake. if not successful will consider NGT feeding Dietary consult --hypokalemia Kayexalate trend -- DVT prophylaxis On lovenox and GI prophylaxis ACP:Pt is DNR Hospitalist Physical - Constitutional Vitals: Temp Pulse Resp BP Pulse Ox 97.5 F L 59 L 16 132/62 95 02/21/19 07:51 02/21/19 09:57 02/21/19 09:01 02/21/19 09:57 02/21/19 08:51 General appearance: Present: severe distress, well-nourished Results - Labs CBC & Chem 7: 02/19/19 09:00 02/21/19 10:37 Labs: Laboratory Last Values WBC 3.1 K/mm3 (4.5-11.0) L 02/19/19 09:00 RBC 4.58 M/mm3 (3.65-5.03) 02/19/19 09:00 Hgb 9.1 gm/dl (11.8-15.2) L 02/19/19 09:00 Hct 31.6 % (35.5-45.6) L 02/19/19 09:00 MCV 69 fl (84-94) L 02/19/19 09:00 MCH 20 pg (28-32) L 02/19/19 09:00 MCHC 29 % (32-34) L 02/19/19 09:00 RDW 19.0 % (13.2-15.2) H 02/19/19 09:00 Plt Count 73 K/mm3 (140-440) L 02/19/19 09:00 Add Manual Diff Complete 02/19/19 09:00 Total Counted 100 02/19/19 09:00 Seg Neuts % (Manual) 93.0 % (40.0-70.0) H 02/19/19 09:00 0 % 02/19/19 09:00 5.0 % (13.4-35.0) L 02/19/19 09:00 Reactive Lymphs % (Man) 0 % 02/19/19 09:00 2.0 % (0.0-7.3) 02/19/19 09:00 0 % (0.0-4.3) 02/19/19 09:00 0 % (0.0-1.8) 02/19/19 09:00 0 % 02/19/19 09:00 0 % 02/19/19 09:00 0 % 02/19/19 09:00 0 % 02/19/19 09:00 Nucleated RBC % Not Reportable 02/19/19 09:00 Seg Neutrophils # Man 2.9 K/mm3 (1.8-7.7) 02/19/19 09:00 Band Neutrophils # 0.0 K/mm3 02/19/19 09:00 0.2 K/mm3 (1.2-5.4) L 02/19/19 09:00 Abs React Lymphs (Man) 0.0 K/mm3 02/19/19 09:00 0.1 K/mm3 (0.0-0.8) 02/19/19 09:00 0.0 K/mm3 (0.0-0.4) 02/19/19 09:00 0.0 K/mm3 (0.0-0.1) 02/19/19 09:00 0.0 K/mm3 02/19/19 09:00 0.0 K/mm3 02/19/19 09:00 0.0 K/mm3 02/19/19 09:00 Blast Cells # 0.0 K/mm3 02/19/19 09:00 WBC Morphology Not Reportable 02/19/19 09:00 Hypersegmented Neuts Not Reportable 02/19/19 09:00 Hyposegmented Neuts Not Reportable 02/19/19 09:00 Hypogranular Neuts Not Reportable 02/19/19 09:00 Not Reportable 02/19/19 09:00 Not Reportable 02/19/19 09:00 Not Reportable 02/19/19 09:00 Not Reportable 02/19/19 09:00 Not Reportable 02/19/19 09:00 Not Reportable 02/19/19 09:00 Consistent w auto 02/19/19 09:00 Not Reportable 02/19/19 09:00 Plt Clumps, EDTA Not Reportable 02/19/19 09:00 Not Reportable 02/19/19 09:00 Not Reportable 02/19/19 09:00 Not Reportable 02/19/19 09:00 Plt Morphology Comment Not Reportable 02/19/19 09:00 RBC Morphology Not Reportable 02/19/19 09:00 Dimorphic RBCs Not Reportable 02/19/19 09:00 Not Reportable 02/19/19 09:00 Not Reportable 02/19/19 09:00 Not Reportable 02/19/19 09:00 1+ 02/19/19 09:00 Not Reportable 02/19/19 09:00 Not Reportable 02/19/19 09:00 Not Reportable 02/19/19 09:00 Not Reportable 02/19/19 09:00 Not Reportable 02/19/19 09:00 Not Reportable 02/19/19 09:00 Not Reportable 02/19/19 09:00 Not Reportable 02/19/19 09:00 Not Reportable 02/19/19 09:00 Not Reportable 02/19/19 09:00 Not Reportable 02/19/19 09:00 Not Reportable 02/19/19 09:00 Not Reportable 02/19/19 09:00 Not Reportable 02/19/19 09:00 Not Reportable 02/19/19 09:00 Acanthocytes (Spur) Not Reportable 02/19/19 09:00 Rouleaux Not Reportable 02/19/19 09:00 Not Reportable 02/19/19 09:00 Not Reportable 02/19/19 09:00 Not Reportable 02/19/19 09:00 Not Reportable 02/19/19 09:00 Hem Pathologist Commnt No 02/19/19 09:00 PT 16.6 Sec. (12.2-14.9) H 02/18/19 10:44 INR 1.38 (0.87-1.13) H 02/18/19 10:44 APTT 30.4 Sec. (24.2-36.6) 02/18/19 10:44 495.84 ng/mlDDU (0-234) H 02/18/19 10:44 POC ABG pH 7.369 (7.35-7.45) 02/19/19 17:08 POC ABG pCO2 56.8 (35-45) H 02/19/19 17:08 POC ABG pO2 98 (80-105) 02/19/19 17:08 POC ABG HCO3 32.8 (22-26 mml/L) 02/19/19 17:08 POC ABG Total CO2 34 (23-27mmol/L) 02/19/19 17:08 POC ABG O2 Sat 97 02/19/19 17:08 POC ABG Base Excess 7 ((-2) - (+3)mmol/L) 02/19/19 17:08 28 % 02/19/19 17:08 Sodium 140 mmol/L (137-145) 02/20/19 07:32 Potassium 5.4 mmol/L (3.6-5.0) H 02/20/19 07:32 Chloride 101.0 mmol/L (98-107) 02/20/19 07:32 Carbon Dioxide 28 mmol/L (22-30) 02/20/19 07:32 16 mmol/L 02/20/19 07:32 BUN 34 mg/dL (9-20) H 02/20/19 07:32 1.7 mg/dL (0.8-1.5) H 02/20/19 07:32 Estimated GFR 38 ml/min 02/20/19 07:32 20 % 02/20/19 07:32 Glucose 161 mg/dL (75-100) H 02/20/19 07:32 POC Glucose 139 (70-105) H 02/21/19 07:54 6.9 % (4-6) H 02/18/19 10:22 Lactic Acid 1.40 mmol/L (0.7-2.0) 02/18/19 10:44 Calcium 8.2 mg/dL (8.4-10.2) L 02/20/19 07:32 Magnesium 2.20 mg/dL (1.7-2.3) 02/18/19 10:44 Iron 23 ug/dL (49-181) L 02/19/19 08:06 TIBC 323 mcg/dL (250-450) 02/19/19 08:06 % Saturation 7.12 % 02/19/19 08:06 282 mg/dl (180-329) 02/19/19 08:06 0.40 mg/dL (0.1-1.2) 02/20/19 07:32 < 0.2 mg/dL (0-0.2) 02/18/19 10:44 0.2 mg/dL 02/18/19 10:44 AST 26 units/L (5-40) 02/20/19 07:32 ALT 35 units/L (7-56) 02/20/19 07:32 104 units/L (35-129) 02/20/19 07:32 37 units/L (55-170) L 02/18/19 10:44 CK-MB (CK-2) 2.9 ng/mL (0.0-4.0) 02/18/19 10:44 CK-MB (CK-2) Rel Index 7.8 (0-4) H 02/18/19 10:44 0.025 ng/mL (0.00-0.029) 02/21/19 00:16 4.60 mg/dL (0.00-1.30) H 02/19/19 19:24 NT-Pro-B Natriuret Pep 34010 pg/mL (0-900) H 02/18/19 10:44 6.9 g/dL (6.3-8.2) 02/20/19 07:32 2.6 g/dL (3.9-5) L 02/20/19 07:32 0.6 % 02/20/19 07:32 Triglycerides 66 mg/dL (2-149) 02/18/19 10:44 Cholesterol 84 mg/dL (50-199) 02/18/19 10:44 31 mg/dL (50-130) L 02/18/19 10:44 44 mg/dL (40-59) 02/18/19 10:44 1.90 % 02/18/19 10:44 Vitamin B12 > 2000 pg/mL (211-911) H 02/19/19 09:00 Yellow (Yellow) 02/19/19 16:15 Slightly-cloudy (Clear) 02/19/19 16:15 5.0 (5.0-7.0) 02/19/19 16:15 Ur Specific [place] 1.014 (1.003-1.030) 02/19/19 16:15 100 mg/dl mg/dL (Negative) 02/19/19 16:15 Neg mg/dL (Negative) 02/19/19 16:15 Neg mg/dL (Negative) 02/19/19 16:15 Sm (Negative) 02/19/19 16:15 Neg (Negative) 02/19/19 16:15 Neg (Negative) 02/19/19 16:15 < 2.0 mg/dL (<2.0) 02/19/19 16:15 Ur Leukocyte Esterase Neg (Negative) 02/19/19 16:15 2.0 /HPF (0.0-6.0) 02/19/19 16:15 4.0 /HPF (0.0-6.0) 02/19/19 16:15 U Epithel Cells (Auto) 1.0 /HPF (0-13.0) 02/19/19 16:15 1+ /HPF (Negative) 02/19/19 16:15 Few /HPF 02/19/19 16:15 Plasma/Serum Alcohol < 0.01 % (0-0.07) 02/18/19 10:44 Active Medications - Current Medications Current Medications: Generic Name Dose Route Start Last Admin Trade Name Freq PRN Reason Stop Dose Admin Acetaminophen 650 mg 02/18/19 17:21 Tylenol PO Q4H PRN Pain MILD(1-3)/Fever >100.5/MARTINO Albuterol 2.5 mg 02/18/19 17:23 Proventil IH Q4HRT PRN Shortness Of Breath Albuterol/Ipratropium 1 ampul 02/20/19 14:00 02/21/19 08:53 Duoneb *Not For Prn Use* IH 1 ampul TIDRT PRASHANT Administration Lipase/Protease/Amylase 1 each 02/20/19 11:50 Maggy Manzanares 10,500 Unit FEEDTUBE PRN PRN For Clogged Feeding Tube Arformoterol Tartrate 15 mcg 02/19/19 20:00 02/21/19 08:53 Brolana Federicou IH Not Given Q12HRT PRASHANT Aspirin 325 mg 02/20/19 10:00 02/21/19 09:47 Aspirin PO 325 mg QDAY PRASHANT Administration Atorvastatin Calcium 40 mg 02/20/19 22:00 02/20/19 22:15 Lipitor PO 40 mg QHS PRASHANT Administration Enoxaparin Sodium 30 mg 02/20/19 22:00 02/20/19 22:14 Lovenox SUB-Q 30 mg QDAY@2200 PRASHANT Administration Famotidine 20 mg 02/21/19 10:00 02/21/19 09:48 Pepcid IV 20 mg DAILY PRASHANT Administration Sodium Chloride 1,000 mls @ 42 mls/hr 02/18/19 18:00 02/19/19 22:05 Nacl 0.9% 1000 Ml IV 42 mls/hr DIRECT PRASHANT Administration Dextrose/Sodium Chloride 1,000 mls @ 75 mls/hr 02/20/19 09:00 02/21/19 04:03 D5ns IV 75 mls/hr DIRECT PRASHANT Administration Levofloxacin/Dextrose 750 mg in 150 mls @ 100 mls/hr 02/22/19 10:00 Levaquin 750mg/150ml IV Q48HR [facility] Protocol Insulin Human Lispro 0 unit 02/19/19 07:30 02/20/19 22:15 Humalog SUB-Q Not Given ACHS [facility] Protocol Lisinopril 5 mg 02/20/19 10:00 02/21/19 09:57 Zestril PO 5 mg QDAY PRASHANT Administration Losartan Potassium 50 mg 02/19/19 10:00 02/21/19 09:47 Cozaar PO 50 mg QDAY PRASHANT Administration Methylprednisolone Sodium Succinate 60 mg 02/18/19 18:00 02/21/19 06:09 Solu-Medrol IV 60 mg Q8HR PRASHANT Administration Metoclopramide HCl 10 mg 02/18/19 17:21 Reglan IV Q6H PRN Nausea And Vomiting Morphine Sulfate 2 mg 06/22/19 17:21 02/19/19 22:06 Morphine IV 2 mg Q4H PRN Administration Pain, Moderate (4-6) Ondansetron HCl 4 mg 02/18/19 17:21 Zofran IV Q8H PRN Nausea And Vomiting Simple Syrup 15 ml 02/20/19 11:50 Simple Syrup FEEDTUBE PRN PRN Hypoglycemia Simple Syrup 30 ml 02/20/19 11:50 Simple Syrup FEEDTUBE PRN PRN Hypoglycemia Sodium Bicarbonate 325 mg 02/20/19 11:50 Sodium Bicarbonate FEEDTUBE PRN PRN For Clogged Feeding Tube Sodium Chloride 10 ml 02/18/19 22:00 02/20/19 22:16 Sodium Chloride Flush Syringe 10 Ml IV 10 ml BID PRASHANT Administration Sodium Chloride 10 ml 02/18/19 17:21 02/21/19 06:16 Sodium Chloride Flush Syringe 10 Ml IV 10 ml PRN PRN Administration LINE FLUSH Nutrition/Malnutrition Assess - Dietary Evaluation Nutrition/Malnutrition Findings: Nutrition Notes Start: 02/20/19 11:39 Freq: Status: Active Protocol: Document 02/20/19 11:39 CHUCKIE (Rec: 02/20/19 11:49 [facility] SRW- [id number]) Nutrition Notes Need for Assessment generated from: MD Order Initial or Follow up Assessment Current Diagnosis COPD,Coronary Artery Disease, Diabetes,Hypertension, Respiratory Failure Other Pertinent Diagnosis COPD exacerbation, adult FTT, Pneu Current Diet Cardiac Labs/Tests K 5.4 BUN 34 Cr 1.7 BG 161 / A1C 6.9 Pertinent Medications D5 NS at 75ml/hr, Solumedrol Height 5 ft 6 in Weight 70.8 kg [facility] Body Weight (kg) 64.54 BMI 25.2 Subjective/Other Information RD consulted for TF. Pt on high-flow oxygen with poor PO intake. Burn Absent Trauma Absent #1 Nutrition Diagnosis Inadequate oral intake Etiology adult FTT, COPD exacerbation As Evidenced by Signs and Symptoms pt on high-flow oxygen with poor PO intake Is patient on ventilator? No Is Patient Ambulatory and/or Out of Bed No REE-([facility]-confined to bed) [phone] Calculation Used for Recommendations [facility] Additional Notes Pro needs 1-1.2g/k-85g/ day Fluid needs 1ml/kcal Nutrition Intervention Nutrition Support: Nepro at 37ml/hr with 150ml water flush q4h. Kcal 1,598 Protein (gm) 72 Carbohydrates (gm) 143 Fat (gm) 85 Fluid (mL) 646 Fiber (gm) 11 Goal #1 TF tolerance Goal #2 TF at goal rate to meet at least 75% energy and pro needs Anticipated Discharge Needs: Continue TF if necessary Follow-Up By: 02/22/19 Additional Comments F/U: TF start/tolerance, need for renal formula
[2019-02-21 11:57] LABS: Albumin 2.6 g/dL (3.9-5); Calcium 8.1 mg/dL (8.4-10.2)
--- NOTE | 2019-02-21 12:08 | Discharge Summary ---
Providers - Providers Date of Admission: 02/18/19 11:54 Date of discharge: 02/21/19 Attending physician: AMEE CUEVAS 02/18/19 Consult to Case Management [CONS] Routine Services Needed at Discharge: [facility] Other Notified:: case management Comment:: hospice placement 02/18/19 17:21 Consult to Physician [CONS] Routine Comment: Consulting Provider: CLAUDIA ALMONTE Physician Instructions: Reason For Exam: acute respiratory failure 02/19/19 14:06 Consult to Dietitian/Nutrition [CONS] Stat Physician Instructions: Reason For Exam: Reason for Consult: Write/Manage Tube Feeding 02/21/19 11:06 Consult to Physician [CONS] Routine Comment: Consulting Provider: JENNIFER MOLINA Physician Instructions: Reason For Exam: Ac systolic CHF EF15-20% Primary care physician: KEISHA ARRIOLA Hospitalization Reason for admission: worsening shortness of breath and cough Condition: Stable Pertinent studies: Echocardiogram; if 15-20%, evidence of severe pulmonary hypertension Hospital course: 88-year-old man comes in for increasing SOB over last 2 to 3 days.No history of COPD.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 COugh productive of mucoid sputum.Smoker.No fever or chills.Was very hypoxic on Arrival.No recent travel. Was placed on BIpap in ED with improvement. Patient was symptomatically managed evaluated by pulmonary critical medications optimized Symptoms significantly improved today patient is comfortable in no new complaints vital signs stable Physical examination prior to discharge is unremarkable Clear by pulmonology for discharge and follow up in the office per schedule Patient is hemodynamically and clinically stable at discharge Patient Was evaluated by hospice and family opted for hospice at home -- Acute hypercapnic respiratory failure IV solumedrol Duonebs and IV abx High flow oxygen with ventimask --Acute vs acute on chronic systolic CHF; EF 15-20% continue anti-failure medications, patient is in hospice -- Possible aspiration Pneumonia IV abx and Duonebs and Low dose steroids blood cx - no growth so far Patient cachectic and macerated hospice care Family did not want antibiotics --COPD with exacerbation As above high flow oxygen Intubation if necessary --CAD (coronary artery disease) No chest pain trend CE ASA. Hold BB b/c COPD and respiratory failure statin and acei -- HTN (hypertension) Cont antihypertensives -- T2DM (type 2 diabetes mellitus): Cont coverage with SSI A1c 6.9 -- Anemia Anemia work up -- Adult failure to thrive Patient also be eating for past 3 days per Patient's at bedside Encourage po intake. if not successful will consider NGT feeding Dietary consult --hypokalemia Kayexalate trend -- DVT prophylaxis On lovenox and GI prophylaxis ACP:Pt is DNR Disposition: DC-50 TO HOSPICE (HOME) Time spent for discharge: 32 min Core Measure Documentation - Palliative Care Palliative Care/ Comfort Measures: Hospice Care - Core Measures Any of the following diagnoses?: heart failure - Heart Failure Discharge Requirements ONIEL/ARB for LVSD if EF <40%: Yes Beta pattie at discharge: No Reason for no beta pattie on DC: Bradycardia Exam - Constitutional Vitals: Temp Pulse Resp BP Pulse Ox 97.5 F L 59 L 16 132/62 95 02/21/19 07:51 02/21/19 09:57 02/21/19 09:01 02/21/19 09:57 02/21/19 08:51 General appearance: Present: no acute distress, well-nourished - EENT Eyes: Present: PERRL, EOM intact - Neck Neck: Present: supple, normal ROM - Respiratory Respiratory effort: normal Respiratory: bilateral: diminished, rales, negative: rhonchi, wheezing - Cardiovascular Rhythm: regular Heart Sounds: Present: S1 & S2 - Extremities Extremities: no ischemia, No edema - Abdominal General gastrointestinal: Present: soft, non-tender, non-distended, normal bowel sounds - Integumentary Integumentary: Present: clear, warm - Musculoskeletal Musculoskeletal: strength equal bilaterally, generalized weakness - Psychiatric Psychiatric: appropriate mood/affect, other (confused at times) - Neurologic Neurologic: moves all extremities Plan Activity: advance as tolerated, fall precautions Diet: advance as tolerated Additional Instructions: continue home hospice Follow up with: PRIMARY CAREMD [Referring] - 3-5 Days HUGO LOZANO MD [Staff Physician] - 7 Days Prescriptions: Losartan [Cozaar] 50 mg PO QDAY #30 tablet Furosemide [Lasix] 20 mg PO QDAY #30 tablet AtorvaSTATin [Lipitor] 40 mg PO QHS #30 tablet Famotidine [Pepcid] 20 mg PO DAILY #30 tablet
[2019-02-21 12:52] VITALS: BP 158/64
--- NOTE | 2019-02-21 13:44 | Progress Note ---
Assessment and Plan Patient sleeping on 2 litres O2. O2 saturation 99%. Patient weak. No acute respiratory distress. Patient afebrile. No leukocytosis. Patient about to discharge to go home with home O2 and home Hospice. - Patient Problems (1) Acute hypercapnic respiratory failure Status: Acute Plan to address problem: O2 2 litres via nasal canula. Albuterol/atrovent aerosol treatments q 6 hours. Continue I/V solumedrol. Continue Levaquin. Continue S/C Lovenox. Continue famotidine. (2) COPD with exacerbation Status: Acute Plan to address problem: O2 2 litres via nasal canula. Albuterol/atrovent aerosol treatments q 6 hours. Continue I/V solumedrol. Continue Levaquin. Continue S/C Lovenox. Continue famotidin (3) Atrial fibrillation Status: Acute Qualifiers: Atrial fibrillation type: unspecified Qualified Code(s): I48.91 - Unspecified atrial fibrillation Plan to address problem: Management as per cardiology. (4) CAD (coronary artery disease) Status: Acute Plan to address problem: Management as per cardiology. (5) CHF (congestive heart failure) Status: Acute Qualifiers: Heart failure type: unspecified Heart failure chronicity: unspecified Qualified Code(s): I50.9 - Heart failure, unspecified Plan to address problem: Management as per cardiology. (6) Pneumonia Status: Acute Qualifiers: Pneumonia type: due to unspecified organism Laterality: right Lung location: upper lobe of lung Qualified Code(s): J18.1 - Lobar pneumonia, unspecified organism Plan to address problem: Possible right lower lobe infiltrate. Patient is on Levaquin. (7) Type 2 diabetes mellitus Status: Acute Qualifiers: Diabetes mellitus mcc insulin use: without adjunct faculty for medical terminology use Diabetes mellitus complication status: with other specified complication Qualified Code(s): E11.69 - Type 2 diabetes mellitus with other specified complication Plan to address problem: Management as per primary care. (8) HTN (hypertension) Status: Chronic Qualifiers: Hypertension type: essential hypertension Qualified Code(s): I10 - Essent ial (primary) hypertension Plan to address problem: Management as per primary care. Subjective Date of service: 02/21/19 Principal diagnosis: acute hypercapnic respiratory failure, ammonia, COPD exacerbation, T2DM Interval history: Patient sleeping on 2 litres O2. O2 saturation 99%. Patient weak. No acute respiratory distress. Patient afebrile. No leukocytosis. Patient about to discharge to go home with home O2 and home Hospice. Objective Vital Signs - 12hr 02/21/19 02/21/19 02/21/19 04:18 07:51 08:51 Temperature 97.3 F L 97.5 F L Pulse Rate 69 57 L Pulse Rate [ Anterior Bilateral Throughout] Pulse Rate [ From Monitor] Pulse Rate [ Left Radial] Pulse Rate [ Right Radial] Respiratory 22 16 Rate Respiratory Rate [Anterior Bilateral Throughout] Blood Pressure 130/68 121/54 O2 Sat by Pulse 97 97 95 Oximetry 02/21/19 02/21/19 02/21/19 08:53 09:01 09:47 Temperature Pulse Rate 59 L Pulse Rate [ 74 75 Anterior Bilateral Throughout] Pulse Rate [ From Monitor] Pulse Rate [ Left Radial] Pulse Rate [ Right Radial] Respiratory Rate Respiratory 16 16 Rate [Anterior Bilateral Throughout] Blood Pressure 132/62 O2 Sat by Pulse Oximetry 02/21/19 02/21/19 02/21/19 09:57 12:00 12:02 Temperature 97.7 F Pulse Rate 59 L 74 Pulse Rate [ Anterior Bilateral Throughout] Pulse Rate [ 57 L From Monitor] Pulse Rate [ 58 L Left Radial] Pulse Rate [ 56 L Right Radial] Respiratory 16 14 Rate Respiratory Rate [Anterior Bilateral Throughout] Blood Pressure 132/62 158/64 O2 Sat by Pulse 97 99 Oximetry Constitutional: no acute distress, asleep Eyes: non-icteric ENT: oropharynx moist Neck: supple, no lymphadenopathy Ascultation: Bilateral: diminished breath sounds, other (Prolonged expiratory phase.) Cardiovascular: regular rate and rhythm Gastrointestinal: normoactive bowel sounds, soft, non-tender Integumentary: normal Extremities: no cyanosis, no edema Neurologic: non-focal exam, pupils equal and round Psychiatric: other (Patient unable to talk.) CBC and BMP: 02/19/19 09:00 02/21/19 10:37 ABG, PT/INR, D-dimer: ABG POC ABG pH 7.369 (7.35-7.45) 02/19/19 17:08 POC ABG pCO2 56.8 (35-45) H 02/19/19 17:08 POC ABG pO2 98 (80-105) 02/19/19 17:08 POC ABG HCO3 32.8 (22-26 mml/L) 02/19/19 17:08 POC ABG Total CO2 34 (23-27mmol/L) 02/19/19 17:08 POC ABG O2 Sat 97 02/19/19 17:08 PT/INR, D-dimer PT 16.6 Sec. (12.2-14.9) H 02/18/19 10:44 INR 1.38 (0.87-1.13) H 02/18/19 10:44 495.84 ng/mlDDU (0-234) H 02/18/19 10:44 Abnormal lab findings: Abnormal Labs 02/18/19 02/18/19 02/18/19 10:22 10:22 10:44 WBC Hgb Hct MCV MCH MCHC RDW Plt Count Seg Neuts % (Manual) Lymphocytes % (Manual) Nucleated RBC % Lymphocytes # (Manual) PT INR D-Dimer POC ABG pH 7.269 L POC ABG pCO2 68.7 H POC ABG pO2 218 H Potassium BUN Creatinine Glucose POC Glucose Hemoglobin A1c 6.9 H Calcium Iron AST Total Creatine Kinase 37 L CK-MB (CK-2) Rel Index 7.8 H Troponin T C-Reactive Protein NT-Pro-B Natriuret Pep Total Protein Albumin LDL Cholesterol Direct Vitamin B12 02/18/19 02/18/19 02/18/19 10:44 10:44 10:44 WBC Hgb 8.4 L Hct 29.2 L MCV 69 L MCH 20 L MCHC 29 L RDW 19.1 H Plt Count 80 L Seg Neuts % (Manual) 87.0 H Lymphocytes % (Manual) 8.0 L Nucleated RBC % 4.0 H Lymphocytes # (Manual) 0.4 L PT 16.6 H INR 1.38 H D-Dimer 495.84 H POC ABG pH POC ABG pCO2 POC ABG pO2 Potassium BUN 26 H Creatinine Glucose 121 H POC Glucose Hemoglobin A1c Calcium 7.8 L Iron AST Total Creatine Kinase CK-MB (CK-2) Rel Index Troponin T C-Reactive Protein NT-Pro-B Natriuret Pep 16143 H Total Protein Albumin 2.7 L LDL Cholesterol Direct Vitamin B12 02/18/19 02/19/19 02/19/19 10:44 08:06 08:06 WBC Hgb Hct MCV MCH MCHC RDW Plt Count Seg Neuts % (Manual) Lymphocytes % (Manual) Nucleated RBC % Lymphocytes # (Manual) PT INR D-Dimer POC ABG pH POC ABG pCO2 POC ABG pO2 Potassium 5.8 H BUN 27 H Creatinine Glucose POC Glucose Hemoglobin A1c Calcium Iron 23 L AST Total Creatine Kinase CK-MB (CK-2) Rel Index Troponin T 0.033 H C-Reactive Protein NT-Pro-B Natriuret Pep Total Protein Albumin 2.7 L LDL Cholesterol Direct 31 L Vitamin B12 02/19/19 02/19/19 02/19/19 08:42 09:00 09:00 WBC 3.1 L Hgb 9.1 L Hct 31.6 L MCV 69 L MCH 20 L MCHC 29 L RDW 19.0 H Plt Count 73 L Seg Neuts % (Manual) 93.0 H Lymphocytes % (Manual) 5.0 L Nucleated RBC % Lymphocytes # (Manual) 0.2 L PT INR D-Dimer POC ABG pH POC ABG pCO2 POC ABG pO2 Potassium BUN Creatinine Glucose POC Glucose 119 H Hemoglobin A1c Calcium Iron AST Total Creatine Kinase CK-MB (CK-2) Rel Index Troponin T C-Reactive Protein NT-Pro-B Natriuret Pep Total Protein Albumin LDL Cholesterol Direct Vitamin B12 > 2000 H 02/19/19 02/19/19 02/19/19 16:24 17:08 19:24 WBC Hgb Hct MCV MCH MCHC RDW Plt Count Seg Neuts % (Manual) Lymphocytes % (Manual) Nucleated RBC % Lymphocytes # (Manual) PT INR D-Dimer POC ABG pH POC ABG pCO2 56.8 H POC ABG pO2 Potassium BUN Creatinine Glucose POC Glucose 177 H Hemoglobin A1c Calcium Iron AST Total Creatine Kinase CK-MB (CK-2) Rel Index Troponin T C-Reactive Protein 4.60 H NT-Pro-B Natriuret Pep Total Protein Albumin LDL Cholesterol Direct Vitamin B12 02/19/19 02/20/19 02/20/19 21:59 07:32 22:36 WBC Hgb Hct MCV MCH MCHC RDW Plt Count Seg Neuts % (Manual) Lymphocytes % (Manual) Nucleated RBC % Lymphocytes # (Manual) PT INR D-Dimer POC ABG pH POC ABG pCO2 POC ABG pO2 Potassium 5.4 H BUN 34 H Creatinine 1.7 H Glucose 161 H POC Glucose 146 H 182 H Hemoglobin A1c Calcium 8.2 L Iron AST Total Creatine Kinase CK-MB (CK-2) Rel Index Troponin T C-Reactive Protein NT-Pro-B Natriuret Pep Total Protein Albumin 2.6 L LDL Cholesterol Direct Vitamin B12 02/21/19 02/21/19 02/21/19 07:54 10:37 12:05 WBC Hgb Hct MCV MCH MCHC RDW Plt Count Seg Neuts % (Manual) Lymphocytes % (Manual) Nucleated RBC % Lymphocytes # (Manual) PT INR D-Dimer POC ABG pH POC ABG pCO2 POC ABG pO2 Potassium 5.1 H BUN 36 H Creatinine Glucose 154 H POC Glucose 139 H 175 H Hemoglobin A1c Calcium 8.1 L Iron AST 41 H Total Creatine Kinase CK-MB (CK-2) Rel Index Troponin T C-Reactive Protein NT-Pro-B Natriuret Pep Total Protein 6.2 L Albumin 2.6 L LDL Cholesterol Direct Vitamin B12
[2019-02-21] MEDS: SODIUM CHLORIDE FLUSH SYRINGE 10 ML IV SCH (13:52)
[2019-02-22] MEDS ORDERED: LASIX IV SCH (06:00)
[2019-02-22] MEDS ORDERED: LEVAQUIN 750MG/150ML 750 MG/150 ML BAG IV SCH (10:00)
[2019-02-22] MEDS ORDERED: PEPCID PO SCH (10:00)
== END 2019-02-21 15:20 | disposition hospice, home (50) | DRG 177 ==
LOC: ED 08:06 → EDBD 11:54 → 4A 11:54
PROVIDERS: ADMIT Internal Medicine; ATTEND Internal Medicine
PROC: 4A033R1 Measurement of Arterial Saturation, Peripheral, Percutaneous Approach (ICD-10-PCS; principal; 2019-02-18)
PROC: 5A09457 Assistance with Respiratory Ventilation, 24-96 Consecutive Hours, Continuous Positive Airway Pressure (ICD-10-PCS; 2019-02-18)
DX: J69.0 Pneumonitis due to inhalation of food and vomit (principal); I50.23 Acute on chronic systolic (congestive) heart failure; J96.02 Acute respiratory failure with hypercapnia; J96.01 Acute respiratory failure with hypoxia; J44.1 Chronic obstructive pulmonary disease with (acute) exacerbation; R64 Cachexia; F17.210 Nicotine dependence, cigarettes, uncomplicated; D69.6 Thrombocytopenia, unspecified; Z51.5 Encounter for palliative care; I48.91 Unspecified atrial fibrillation; I25.10 Atherosclerotic heart disease of native coronary artery without angina pectoris; I11.0 Hypertensive heart disease with heart failure; E11.9 Type 2 diabetes mellitus without complications; R62.7 Adult failure to thrive; D64.9 Anemia, unspecified; E87.6 Hypokalemia; Z59.0 Homelessness; Z95.1 Presence of aortocoronary bypass graft; Z68.23 Body mass index [BMI] 23.0-23.9, adult
CPT/HCPCS: 36415; 71045; 80048; 80053; 80061; 80076; 80320; 81001; 82140; 82550; 82553; 82607; 82747; 82803; 82962; 83036; 83550; 83735; 83880; 84484; 85007; 85025; 85379; 85610; 85730; 86140; 87040; 87116; 93005; 93010; 93306; 94640; 94660; 94760; G0378; A9270-GY; G0480; J0696; J1650; J1940; J1956; J2060; J2270; J2930; J7030; J7042